=== PATIENT | male | born 1950 | race Caucasian/White ===

== ENCOUNTER 2023-01-21 17:21 | Inpatient (IN) | payer MEDICARE, BC ==
[~2023-01-21] VITALS: Ht 185.4 cm; Wt 96.6 kg
[2023-01-21] MEDS ORDERED: OLANZAPINE 5 MG TABLET ONE (18:29)
[2023-01-21] MEDS ORDERED: OLANZAPINE ZYDIS 5 MG TAB.RAPDIS PO ONE (18:30)
--- NOTE | 2023-01-21 18:46 | NUR ---
FROM [facility] F[facility] [phone] DEIRDRE (BILLING ANALYST) [phone] JIM (HOUSE SUP.) [phone]
[2023-01-21 18:52] LABS: ALANINE AMINOTRANSFERASE 26 U/L (12-78); ALKALINE PHOSPHATASE 133 U/L (46-116); ASPARTATE AMINOTRANSFERASE 24 U/L (15-37); BILIRUBIN,DIRECT 0.1 mg/dL (0.0-0.2); BILIRUBIN,TOTAL 0.3 mg/dL (0.2-1.0); CALCIUM, SERUM 9.1 mg/dL (8.5-10.1); CARBON DIOXIDE 27 mmol/L (21-32); CHLORIDE 105 mmol/L (98-107); CREATININE 0.8 mg/dL (0.6-1.3); GLUCOSE 135 mg/dL (74-106); POTASSIUM 3.7 mmol/L (3.5-5.1); SODIUM SERUM 140 mmol/L (136-145); TOTAL PROTEIN, SERUM 7.2 g/dL (6.4-8.2); UREA NITROGEN, BLOOD 26 mg/dL (7-18)
[2023-01-21 18:54] LABS: ACETAMINOPHEN 0 ug/ml (10-30); ALCOHOL, BLOOD < 3 mg/dL (0-0)
[2023-01-21 19:42] LABS: BILIRUBIN,URINE NEGATIVE (NEGATIVE); COLOR,URINE YELLOW (YELLOW); LEUKOCYTE ESTERASE ,URINE NEGATIVE (NEGATIVE); NITRITE, URINE NEGATIVE (NEGATIVE); PROTEIN,URINE NEGATIVE (NEGATIVE); UGLUCOSE NEGATIVE (NEGATIVE); UROBILINOGEN,URINE 0.2 EU/dL (0.2)
--- NOTE | 2023-01-21 19:51 | NUR ---
PT ARRIVE W/ [address]. WAS DETERMINED TAHT HE WAS A DANGER TO HIMSELF. PT RAMBLES AND HAS DELUSIONS OF GRANDIOSITY. PT IS NOT COMBATIVE. CONNECTED TO BEDSIDE MONITOR VITALS WNL.
[2023-01-21 19:55] LABS: BASOPHILS # (AUTO) 0.1 K/uL (0.0-0.2); BASOPHILS % (AUTO) 0.7 % (0.0-2.0); EOSINOPHILS % (AUTO) 0.8 % (0.0-6.0); HEMATOCRIT 40 % (39-51); HEMOGLOBIN 13.5 g/dL (13.5-17.5); LYMPHOCYTES % (AUTO) 34.1 % (20.0-44.0); MEAN CORPUSCULAR HGB CONC 34 g/dl (31.0-36.0); MEAN CORPUSCULAR VOLUME 87 fL (80-96); MONOCYTES % (AUTO) 10.7 % (2.0-12.0); NEUTROPHILS # (AUTO) 4.8 K/uL (1.8-8.9); NEUTROPHILS % (AUTO) 53.7 % (43.0-81.0); PLATELET COUNT (AUTO) 272 K/uL (150-450); RED BLOOD CELL COUNT(AUTO) 4.65 MIL/uL (4.5-6.0); WHITE BLOOD COUNT (AUTO) 8.9 K/uL (4.3-11.0)
[2023-01-21] MEDS ORDERED: LORAZEPAM INJ 2 MG/ML VIAL ONE (19:57)
[2023-01-21] MEDS ORDERED: LORAZEPAM INJ 2 MG/ML VIAL IM ONE (20:00)
[2023-01-21 20:43] LABS: BACTERIA,URINE RARE /HPF (None Seen); MUCUS,URINE Many /LPF (None Seen)
--- NOTE | 2023-01-21 21:06 | NUR ---
COVID SWAB COLLECTED AND SENT TO LAB
--- NOTE | 2023-01-22 01:43 | NUR ---
PT SLEEPING IN BED. RESP RATE EVEN AND NONLABORED. SAFETY MEASURES IN PLACE
[2023-01-22] MEDS ORDERED: LORAZEPAM INJ 2 MG/ML VIAL IV ONE (02:00)
[2023-01-22] MEDS ORDERED: LORAZEPAM INJ 2 MG/ML VIAL ONE (02:01)
--- NOTE | 2023-01-22 02:01 | NUR ---
PROVIDED PT WITH WATER; TOLERATING WELL.
--- NOTE | 2023-01-22 02:07 | NUR ---
PT YELLING AND NOT REDIRECTABLE. FOOD AND ADLS PROVIDED. ADMINISTRED ATIVAN 2MG IM ORDERED.
--- NOTE | 2023-01-22 02:21 | NUR ---
ADLS DONE; DIAPER CHANGED. RESPONSITIONED PT. SAFETY MEASURES IN PLACE.
[2023-01-22] MEDS ORDERED: HALOPERIDOL LACTATE INJ 5 MG/ML VIAL IV ONE (03:00)
[2023-01-22] MEDS ORDERED: diphenhydrAMINE HCL 50 MG/ML VIAL IV ONE (03:00)
[2023-01-22] MEDS ORDERED: diphenhydrAMINE HCL 50 MG/ML VIAL ONE (03:02)
[2023-01-22] MEDS ORDERED: HALOPERIDOL LACTATE INJ 5 MG/ML VIAL ONE (03:02)
[2023-01-22] MEDS ORDERED: HALOPERIDOL LACTATE INJ 5 MG/ML VIAL IM ONE (03:30)
--- NOTE | 2023-01-22 06:27 | NUR ---
PER IS SUPPORT ANALYST STAFF, TO GIVE REPORT AFTER CHANGE OF SHIFT.
--- NOTE | 2023-01-22 07:31 | NUR ---
REPORT GIVEN TO RINA RN ROOM 213 FOR PINKY.
--- NOTE | 2023-01-22 07:31 | NUR ---
REPORT GIVEN TRACY NIELSON
--- NOTE | 2023-01-22 07:47 | NUR ---
MOVED TO INPATIENT ROOM SAFELY
--- NOTE | 2023-01-22 08:00 | NUR ---
RN-ADMISSION NOTES AROUND 0[facility] ER STAFF BROUGHT IN A 72 Y.O MALE PATIENT IN THE UNIT VIA HOSPITAL BED. PATIENT ON 5150 HOLD FOR GD ADULT. PATIENT IS UNDER THE CARE OF DR. SAUCEDA ( PSYCHIATRIST) UPON FACE TO FACE ASSESSMENT PATIENT IS ALERT ORIENTED TO NAME ONLY WITH GARBLE SPEECH,GUARDED FLAT AFFECT ,DELUSIONAL STATING THAT HE IS THE [place] PRESIDENT. PATIENT IS POOR HISTORIAN UNABLE TO FOCUS ON ANY CONVERSATION. PATIENT WITH UNSTEADY GAIT AMBULATES WITH WALKER WITH ONE STAFF ASSIST. INSTRUCTED TO CALL FOR HELP GETTING UP THE BED OR NEED ASSISTANCE. CONTRABAND AND SKIN ASSESSMENT DONE. PATIENT WAS ORIENTED IN HIS ROOM AND UNIT POLICIES. NO FAMILY TO NOTIFY ON THE ADMISSION. COMMERCIAL LOAN ADMINISTRATOR JERICA ( BOTTLE BLOWER) MADE AWARE OF THE ADMISSION. PT EVAL AND WOUND CONSULT ORDERED.
--- NOTE | 2023-01-22 09:17 | NUR ---
JAX Initial Discharge Note: Per records it states that pt was residing at [address] [place] [address]. JAX will contact pt's brother Jonathon ([phone]) to gather collateral and discuss treatment/discharge plan. JAX will work with the family, MD, and pt to help coordinate appropriate discharge.
--- NOTE | 2023-01-22 09:18 | NUR ---
JAX Clinical Note: Pt placed on a 5150 hold for GD. Pt brought to the hospital due to being cited out of his home because of a misdemeanor and at the [address] pt was delusional stating that he is the U.[place] President. Per records it states that pt was residing at [address] [place] [address]. JAX will contact pt's brother Jonathon ([phone]) to gather collateral and discuss treatment/discharge plan.
--- NOTE | 2023-01-22 09:19 | NUR ---
JAX Family Contact: SW contacted pt's brother Jonathon ([phone]) who stated that he lives in [place]. He stated that last two years his symptoms and manic episodes have been worse. He stated that he has been in and out of mental health units. He stated that he has been kicked out of his apartment two weeks ago because he has been threatening residents. He stated that he is unable to care for him and that he is "toxic". He stated he has another brother in [place] (stepbrother). He stated pt has no where to go. SW recommended nursing facility and brother was agreeable of this. He stated that he is the DPOA but unable to find the documents. He stated if finds and locates the documents he will send it over.
[2023-01-22] MEDS ORDERED: MAGNESIUM HYDROXIDE 30 ML UDC PO PRN (10:00)
[2023-01-22] MEDS ORDERED: MAG HYDROX/AL HYDROX/SIMETH 30 ML UDC PO PRN (10:00)
[2023-01-22] MEDS ORDERED: BLOOD SUGAR DIAGNOSTIC 1 EACH STRIP IN ONE (10:00)
[2023-01-22] MEDS ORDERED: LORAZEPAM 1 MG TABLET PO PRN (11:00)
[2023-01-22] MEDS: LamoTRIgine 25 MG TABLET PO SCH ×2 (11:17→21:05)
--- NOTE | 2023-01-22 11:28 | NUR ---
RN-NOTES NOTED PATIENT YELLING AND SCREAMING/CONFUSED REDIRECTED AND REORIENTED. ATIVAN 1MG P.O GIVEN PRN ORDER. WILL CONT. MONITORING FOR SAFETY AND BEHAVIOR.
--- NOTE | 2023-01-22 12:30 | NUR ---
RN-NOTES PATIENT IN DAY ROOM SITTING IN THE CHAIR AWAKE ,CALM,NO ACUTE DISTRESS NOTED.
[2023-01-22 16:19] VITALS: BP 140/80
[2023-01-22] MEDS: risperiDONE 0.25 MG TABLET PO SCH (16:40)
[2023-01-22] MEDS ORDERED: LAMO100T17 PO (17:29)
[2023-01-22] MEDS ORDERED: IBUP-1955 PO (17:29)
[2023-01-22] MEDS ORDERED: TAMS-12 PO (17:29)
[2023-01-22] MEDS ORDERED: HALO5SYR IM (17:29)
[2023-01-22] MEDS ORDERED: AMLO-212 PO (17:29)
[2023-01-22] MEDS ORDERED: QUET200T PO (17:29)
[2023-01-22] MEDS ORDERED: LORA-259 PO (17:29)
[2023-01-22] MEDS ORDERED: ATOR10TA PO (17:29)
[2023-01-22] MEDS ORDERED: GABA-532 PO (17:29)
[2023-01-22] MEDS ORDERED: OMEP20CA15 PO (17:29)
[2023-01-22] MEDS ORDERED: TRAZ-182 PO (17:29)
--- NOTE | 2023-01-22 17:55 | NUR ---
RN-NOTES DR. TURNER WAS NOTIFIED REGARDING PATIENT'S ADMISSION ,PER DR. TURNER IS OK FOR THE [facility] HOSPITALIST TO SEE THE PATIENT BECAUSE HE IS NOT FAMILIAR WITH THE PATIENT. JUNIOR COPYWRITER FRANCISCO PIZANO ALSO MADE AWARE TO RECONCILE PATIENT'S MEDICATIONS.
--- NOTE | 2023-01-22 19:35 | NUR ---
RN NOTES RECEIVED PATIENT AMBULATING IN HALLWAY WITH WALKER. PT A/O X1-2, ABLE TO MAKE SIMPLE NEEDS KNOWN. PT HAS GRANDIOSE IDEATION, AND HALLUCINATIONS. COOPERATIVE WITH STAFF, AND PRESENT IN UNIT. WILL CONTINUE TO MONITOR BEHAVIOR AND MANAGE ACCORDINGLY.
[2023-01-22 20:16] VITALS: BP 123/76
[2023-01-22] MEDS: ATORVASTATIN 10 MG TABLET PO SCH (21:06)
[2023-01-22] MEDS: AMLODIPINE BESYLATE 5 MG TABLET PO SCH (21:06)
[2023-01-22] MEDS: TAMSULOSIN 0.4 MG CAP.SR.24H PO SCH (21:07)
[2023-01-22] MEDS: ZOLPIDEM TARTRATE 5 MG TABLET PO PRN (23:10)
--- NOTE | 2023-01-22 23:10 | NUR ---
RN NOTE PT REPORTS BEING UNABLE TO SLEEP. EDGARIEN ADMINISTERED TO PT.
[2023-01-23] MEDS: ACETAMINOPHEN 325 MG TABLET PO PRN ×2 (03:41→19:59)
--- NOTE | 2023-01-23 03:41 | NUR ---
RN NOTE PT C/O PAIN TO BILATERAL SHOULDERS. TYLENOL ADMINISTERED TO PT.
[2023-01-23 07:05] LABS: ALANINE AMINOTRANSFERASE 30 U/L (12-78); ALBUMIN 3.9 g/dL (3.4-5.0); ALKALINE PHOSPHATASE 132 U/L (46-116); ASPARTATE AMINOTRANSFERASE 27 U/L (15-37); BILIRUBIN,TOTAL 0.6 mg/dL (0.2-1.0); CALCIUM, SERUM 9.4 mg/dL (8.5-10.1); CARBON DIOXIDE 28 mmol/L (21-32); CHLORIDE 103 mmol/L (98-107); CREATININE 0.8 mg/dL (0.6-1.3); GLUCOSE 109 mg/dL (74-106); SODIUM SERUM 138 mmol/L (136-145); TOTAL PROTEIN, SERUM 7.1 g/dL (6.4-8.2); UREA NITROGEN, BLOOD 16 mg/dL (7-18)
--- NOTE | 2023-01-23 07:05 | NUR ---
RN NOTE LEFT PATIENT AWAKE, IN BED. PT A/O X2, ABLE TO MAKE NEEDS KNOWN. PT HAS GRANDIOSE IDEATION, AND HALLUCINATIONS. COOPERATIVE WITH STAFF, AND PRESENT IN UNIT. PT ONLY SLEPT A FEW HOURS LAST NIGHT. NO RESPIRATORY DISTRESS NOTED. NO C/O PAIN AT THIS TIME. WILL ENDORSE TO AM SHIFT NURSE FOR PINKY.
--- NOTE | 2023-01-23 07:16 | NUR ---
WOUND CARE CONSULT: PT SLEEPING AT THIS TIME. REVIEWED CHART, NURSING DOCUMENTATION AND PHOTOS WHICH INDICATE RT LATERAL LOWER LEG WOUND, PRESENT ON ADMISSION. RECOMMEND DPM CONSULT. DR PUENTE TO BE CALLED THIS AM FOR CONSULT. MD IN AGREEMENT WITH PLAN OF CARE.
[2023-01-23 08:00] VITALS: BP 137/78
[2023-01-23 08:14] LABS: CHOLESTEROL 149 mg/dL (<200); HDL CHOLESTEROL 52 mg/dL (40-60); LDL 88 mg/dL (0-99); TRIGLYCERIDES 60 mg/dL (30-150)
[2023-01-23] MEDS: AMLODIPINE BESYLATE 5 MG TABLET PO SCH ×2 (08:42→21:24)
[2023-01-23] MEDS: LamoTRIgine 25 MG TABLET PO SCH ×2 (08:42→21:23)
[2023-01-23] MEDS: risperiDONE 0.25 MG TABLET PO SCH (08:42)
[2023-01-23] MEDS ORDERED: diphenhydrAMINE HCL 50 MG/ML VIAL IM ONE (10:00)
[2023-01-23] MEDS ORDERED: HALOPERIDOL LACTATE INJ 5 MG/ML VIAL IM ONE (10:00)
--- NOTE | 2023-01-23 10:50 | NUR ---
NURSE NOTE: PT YELLING, BEING BELIGERENT. THREATENING. DR SAUCEDA NOTED AND ORDERED. HALDOL 5MG AND BENADRYL 25MG IM. HALDOL AND BENADRYL ADMINISTERED ORDERED. PT JOSE E WELL. WILL CONT TO MONITOR.
--- NOTE | 2023-01-23 11:50 | NUR ---
NURSE NOTE: PT SL CALMER, BUT CONT HAVING OUTBURSTS OF YELLING AND SCREAMING OBSCENITIES. WILL CONT TO MONITOR.
[2023-01-23] MEDS ORDERED: OLANZAPINE 10 MG VIAL IM ONE (12:00)
--- NOTE | 2023-01-23 12:15 | NUR ---
NURSE NOTE: PT CONT ACTING BELLIGERENT. YELLING, THREATENING, SAYING OBSCENITIES. DR SAUCEDA NOTIFIED AND ORDERED ZYPREXA 10MG IM. ZYPREXA ADMINISTERED ORDERED. PT JOSE E WELL. WILL CONT TO MONITOR.
--- NOTE | 2023-01-23 13:00 | NUR ---
NURSE NOTE: PT SLEEPING AT THIS TIME. ZYPREXA EFFECTIVE AT THIS TIME. WILL CONT TO MONITOR.
[2023-01-23 16:00] VITALS: BP 127/75
[2023-01-23] MEDS: risperiDONE 1 MG TABLET PO SCH (17:00)
[2023-01-23] MEDS: ENSURE ENLIVE CHOC 237 ML CAN PO SCH (17:00)
--- NOTE | 2023-01-23 19:30 | NUR ---
GPS RN OPENING NOTE PT AWAKE IN BED. A/O X2. GUARDED, DELUSIONAL, THINKS THAT HIS BROTHER IS THE PRESIDENT OF THE [place], ANXIOUS, AGITATED AT TIMES, EASILY ANGERED. NEEDS FREQUENT REDIRECTIONS AND REORIENTATION. SAFETY PRECAUTIONS IN PLACE.
--- NOTE | 2023-01-23 20:00 | NUR ---
RN NOTE PT REQUESTED TYLENOL FOR PAIN. ADMINISTERED TYLENOL 650 MG FOR MILD PAIN ORDERED.
[2023-01-23 20:14] VITALS: BP 141/79
[2023-01-23] MEDS: ATORVASTATIN 10 MG TABLET PO SCH (21:23)
[2023-01-23] MEDS: TAMSULOSIN 0.4 MG CAP.SR.24H PO SCH (21:23)
[2023-01-24] MEDS: ACETAMINOPHEN 325 MG TABLET PO PRN ×3 (03:46→23:59)
--- NOTE | 2023-01-24 03:47 | NUR ---
RN NOTE PT REQUESTED TYLENOL FOR R ARM PAIN 01/25. ADMINISTERED TYLENOL 650 MG FOR MILD PAIN ORDERED. ALL NEEDS MET AT THIS TIME.
--- NOTE | 2023-01-24 06:48 | NUR ---
GPS RN CLOSING NOTE PT RESTING IN BED, VERBALLY RESPONSIVE. A/O X2. GUARDED, DELUSIONAL, THINKS THAT HIS BROTHER IS THE PRESIDENT OF THE [place], ANXIOUS, AGITATED AT TIMES, EASILY ANGERED. NEEDS FREQUENT REDIRECTIONS AND REORIENTATION. SLEPT 7 HOURS THI SHIFT. ADMINISTERED TYLENOL 2 TIMES THIS SHIFT. SAFETY PRECAUTIONS IN PLACE AND WILL ENDORSE TO ONCOMING NURSE FOR PINKY.
[2023-01-24] MEDS: ENSURE ENLIVE CHOC 237 ML CAN PO SCH ×2 (07:59→16:15)
[2023-01-24 08:00] VITALS: BP 126/73
[2023-01-24] MEDS: risperiDONE 1 MG TABLET PO SCH ×2 (08:05→16:15)
[2023-01-24] MEDS: LamoTRIgine 25 MG TABLET PO SCH ×2 (08:06→20:20)
[2023-01-24] MEDS: AMLODIPINE BESYLATE 5 MG TABLET PO SCH ×2 (08:06→20:21)
[2023-01-24] MEDS ORDERED: LORAZEPAM 1 MG TABLET PO PRN (08:30)
[2023-01-24] MEDS: LORAZEPAM 1 MG TABLET PO PRN (09:56)
--- NOTE | 2023-01-24 09:57 | NUR ---
RN- NOTES ATIVAN 1MG ADMINISTERED DUE TO PATIENT BEING IRRITABLE, CURSING AND YELLING AT STAFF, AND AGGRESSIVE.
[2023-01-24 16:00] VITALS: BP 115/63
--- NOTE | 2023-01-24 18:02 | NUR ---
RN NOTE PT REQUESTED TYLENOL FOR PAIN. ADMINISTERED TYLENOL 650 MG FOR MILD PAIN ORDERED.
--- NOTE | 2023-01-24 18:32 | NUR ---
GPS RN CLOSING NOTE PATIENT SITTING IN HIS BED, A/OX2, BREATHING EVEN AND NON LABORED WITH NO S/S OF DISTRESS. PT IS ANXIOUS, HYPERVERBAL, NEEDY, PACING THE HALLWAY, AND HAVING DELUSIONS OF GRANDEUR. DENIES SI/HI AT THIS TIME. PT IS MED COMPLIANT. ADMINISTERED ALL DUE MEDS AND PRN ATIVAN AND TYLENOL PER PATIENT REQUEST. WOUND CARE PER MD ORDER, KEPT PATIENT C/D/I. NEEDS FREQUENT REDIRECTIONS. PT DENIES SI/HI AT THIS TIME. SAFETY MEASURES IN PLACE. WILL ENDORSE TO ONCOMING NURSE FOR PINKY.
[2023-01-24 20:00] VITALS: BP 129/75
[2023-01-24] MEDS: ATORVASTATIN 10 MG TABLET PO SCH (21:10)
[2023-01-24] MEDS: TAMSULOSIN 0.4 MG CAP.SR.24H PO SCH (21:10)
--- NOTE | 2023-01-25 | NUR ---
RN NOTE PATIENT C/O RIGHT ARM PAIN WITH 3/10 PAIN LEVEL SINCE 2229 BUT NO PAIN MEDS DUE UNTIL 12 AM. EXPLAINED THIS TO PATIENT. PT VERBALIZED UNDERSTANDING AND WILLINGNESS TO WAIT. TYLENOL EVENTUALLY GIVEN AT 0000 PRESCRIBED.
[2023-01-25] MEDS: ACETAMINOPHEN 325 MG TABLET PO PRN ×3 (05:53→21:08)
--- NOTE | 2023-01-25 05:54 | NUR ---
RN NOTE PATIENT REQUESTED PAIN MEDICATION FOR R ARM MILD PAIN. ADMINISTERED TYLENOL 650 MG INDICATED.
--- NOTE | 2023-01-25 06:29 | NUR ---
RN NOTE PT STARTING TO GET AGITATED, STATING HE WANTS HIS PHONE AND HIS MONEY BACK FROM HIS BROTHER ANDERSON. OFFERED ATIVAN PRN MED FOR ANXIETY BUT PT REFUSES, SAYING "STOP OFFERING ME DRUGS WHEN I AM PISSED OFF ABOUT MY PHONE". ALSO ASKING FOR BREAKFAST AT THIS TIME. MENTIONED THAT BREAKFAST COMES AT 0730. PROVIDED JUICE FOR NOW AND IT HELPED CALM HIM DOWN.
--- NOTE | 2023-01-25 06:32 | NUR ---
GPS RN CLOSING NOTE PATIENT SITTING IN HIS BED, A/OX2, BREATHING EVEN AND NON LABORED WITH NO S/S OF DISTRESS. PT IS ANXIOUS, HYPERVERBAL, NEEDY, AND HAVING DELUSIONS OF GRANDEUR. COMPLAINS WHY HE IS IN 5150 HOLD WHEN HE ONLY CLAIMED HE WILL BE PRESIDENT WHEN BIDEN STEPS DOWN, NOT THAT HE IS PRESIDENT NOW. ALSO MENTIONS ABOUT HIS BROTHER ANDERSON, BLUEPRINT PROCESSOR DENNIS, AND THAT HE WILL BE TO THE [facility]. PT IS MED COMPLIANT. ADMINISTERED ALL DUE MEDS AND PRN TYLENOL PER PATIENT REQUEST. REFUSES ATIVAN. WOUND CARE INTACT BUT REINFORCED. NEEDS FREQUENT REDIRECTIONS. PT DENIES SI/HI AT THIS TIME. SAFETY MEASURES MAINTAINED. WILL ENDORSE PINKY TO ONCOMING NURSE.
[2023-01-25 08:00] VITALS: BP 104/74
[2023-01-25] MEDS: ENSURE ENLIVE CHOC 237 ML CAN PO SCH ×2 (08:18→16:26)
[2023-01-25] MEDS: LamoTRIgine 25 MG TABLET PO SCH ×2 (08:18→20:47)
[2023-01-25] MEDS: risperiDONE 1 MG TABLET PO SCH ×3 (08:18→16:26)
[2023-01-25] MEDS: AMLODIPINE BESYLATE 5 MG TABLET PO SCH (08:23)
--- NOTE | 2023-01-25 10:05 | NUR ---
GPS/RN RISPERDAL GIVEN ALREADY. NEW DOSE TO BE STARTED AT 1700
--- NOTE | 2023-01-25 10:20 | NUR ---
Court Notification: JAX contacted pt's brother Otilio ([phone]) and left a voicemail of [phone] hearing.
--- NOTE | 2023-01-25 10:20 | NUR ---
Court Hearing: Patient's court hearing for 0030 was today and it was upheld for GD.
[2023-01-25 16:00] VITALS: BP 157/87
[2023-01-25 20:00] VITALS: BP 120/64
[2023-01-25 20:19] VITALS: BP 120/64
[2023-01-25] MEDS: TAMSULOSIN 0.4 MG CAP.SR.24H PO SCH (21:09)
[2023-01-25] MEDS: ATORVASTATIN 10 MG TABLET PO SCH (21:09)
--- NOTE | 2023-01-25 21:51 | NUR ---
RECEIVED PATIENT IN ACTIVITY ROOM, DELUSIONAL, INTRODUCED HIMSELF ECONOMIC ANALYSIS DIRECTOR. CALM, COOPERATIVE, NEEDY, TOOK ALL PM MEDS, EATING WELL, GIVEN SNACKS AND DRINKING WATER. KEPT SAFE, WILL CONTINUE TO MONITOR FOR SAFETY.
--- NOTE | 2023-01-26 01:07 | NUR ---
GPS RN NOTE, PATIENT HAS A COMPLAINT OF CHRONIC RIGHT SHOULDER PAIN AT 7 OUT 10 ON THE PAIN SCALE AND IS REQUESTING MEDICATION STRONGER THAN TYLENOL. PAGED [facility] AND INFORMED DR KNIGHT OF MY FINDINGS. DR KNIGHT ORDERED MOTRIN 600MG PO Q6HR PRN. ALL ORDERS NOTED AND CARRIED OUT. WILL CONTINUE TO MONITOR THIS PATIENT WITH THE HELP OF STAFF.
[2023-01-26] MEDS: IBUPROFEN 600 MG TABLET PO PRN ×3 (01:13→21:49)
[2023-01-26] MEDS: ACETAMINOPHEN 325 MG TABLET PO PRN (05:59)
--- NOTE | 2023-01-26 06:03 | NUR ---
ALERT/ORIENTED X2, ROOM AIR, RIGHT SHOULDER PAIN, GIVEN TYLENOL AND NEW ORDER MOTRIN 600 MG. CALM, COOPERATIVE, RESTLESS AT TIMES, HYPERVERBAL, TOOK ALL MEDICATIONS, AMBULATORY, CONTINENT. NO BEHAVIORAL DISTURBANCE DURING SHIFT. KEPT SAFE.
[2023-01-26 08:00] VITALS: BP 125/70
[2023-01-26] MEDS: risperiDONE 1 MG TABLET PO SCH ×2 (08:14→16:15)
[2023-01-26] MEDS: AMLODIPINE BESYLATE 5 MG TABLET PO SCH (08:14)
[2023-01-26] MEDS: LamoTRIgine 25 MG TABLET PO SCH ×2 (08:14→21:49)
[2023-01-26] MEDS: ENSURE ENLIVE CHOC 237 ML CAN PO SCH ×2 (08:14→16:14)
[2023-01-26 16:00] VITALS: BP 99/56
[2023-01-26 20:00] VITALS: BP 99/64
[2023-01-26] MEDS: ZOLPIDEM TARTRATE 5 MG TABLET PO PRN ×4 (21:48→23:30)
[2023-01-26] MEDS: ATORVASTATIN 10 MG TABLET PO SCH (21:48)
[2023-01-26] MEDS: TAMSULOSIN 0.4 MG CAP.SR.24H PO SCH (21:49)
[2023-01-27] MEDS: ACETAMINOPHEN 325 MG TABLET PO PRN (01:58)
--- NOTE | 2023-01-27 03:40 | NUR ---
Closing notes: alert and orientated X2 ambulates the hallway beginning of the shift requested a sleeping pill and when taken to the room refused say " I'm so tired I don't need it" Motrin /Tylenol given for right shoulder pain and effective speech garbled stated to me "I'm the President, did you know that?"
[2023-01-27 08:00] VITALS: BP 124/71
[2023-01-27] MEDS: ENSURE ENLIVE CHOC 237 ML CAN PO SCH ×2 (08:00→17:40)
[2023-01-27] MEDS: risperiDONE 1 MG TABLET PO SCH ×2 (09:02→16:08)
[2023-01-27] MEDS: AMLODIPINE BESYLATE 5 MG TABLET PO SCH (09:02)
[2023-01-27] MEDS: LamoTRIgine 25 MG TABLET PO SCH ×2 (09:02→21:46)
[2023-01-27] MEDS: IBUPROFEN 600 MG TABLET PO PRN ×2 (12:28→20:51)
[2023-01-27] MEDS: LORAZEPAM 1 MG TABLET PO PRN (14:36)
--- NOTE | 2023-01-27 14:36 | NUR ---
NURSE NOTE: PT ANXIOUS AT THIS TIME. ATIVAN PO ADMINISTERED ORDERED. PT JOSE E WELL. WILL CONT TO MONITOR.
--- NOTE | 2023-01-27 15:36 | NUR ---
NURSE NOTE: PT CALM AT THIS TIME. ATIVAN EFFECTIVE AT THIS TIME. WILL CONT TO MONITOR.
[2023-01-27 16:00] VITALS: BP 119/70
[2023-01-27 20:19] VITALS: BP 111/64
--- NOTE | 2023-01-27 20:51 | NUR ---
RN NOTE PATIENT C/O OF 6/10 PAIN AND REQUESTED MOTRIN. MEDICATION GIVEN ORDERED
[2023-01-27] MEDS: TAMSULOSIN 0.4 MG CAP.SR.24H PO SCH (21:46)
[2023-01-27] MEDS: ATORVASTATIN 10 MG TABLET PO SCH (21:46)
--- NOTE | 2023-01-27 22:30 | NUR ---
RN NOTE WOUND CARE ON RIGHT LOWER LEG DONE. WOUND PHOTO TAKEN AND PLACED IN CHART
[2023-01-28] MEDS: ACETAMINOPHEN 325 MG TABLET PO PRN ×2 (01:14→22:16)
--- NOTE | 2023-01-28 01:17 | NUR ---
RN NOTE PATIENT C/O RIGHT ARM PAIN. TYLENOL 650 MG PO GIVEN ORDERED
[2023-01-28] MEDS: IBUPROFEN 600 MG TABLET PO PRN ×2 (03:35→16:56)
--- NOTE | 2023-01-28 03:40 | NUR ---
RN NOTE PATIENT C/O OF 6/10 PAIN AND REQUESTED MOTRIN. MEDICATION GIVEN ORDERED
--- NOTE | 2023-01-28 06:31 | NUR ---
RN CLOSING NOTE PATIENT SLEEPING IN BED AT THIS TIME, PT ALERT/ORIENTED X 2, PT ABLE TO MAKE NEEDS KNOWN. PT CALM AND COOPERATIVE THIS SHIFT, NO BEHAVIORAL ISSUES. PATIENT STILL STATING HE'S GOING TO BE PRESIDENT. PATIENT STATING IT'S HIS BIRTHDAY SO HE'S LEAVING TODAY TO CELEBRATE WITH HIS BROTHER, REORIENTED PATIENT TO SITUATION. PATIENT MED COMPLIANT. PATIENT REQUESTED MOTRIN AND TYLENOL THIS SHIFT FOR PAIN. WOUND CARE AND WOUND PHOTO TAKEN. PATIENT ABLE TO AMBULATE WITH FWW. PATIENT SLEPT WELL, NO SIGNIFICANT CHANGES THIS SHIFT. SAFETY MEASURES MAINTAINED. WILL ENDORSE TO DAYSHIFT RN FOR CONTINUITY OF CARE
[2023-01-28 08:00] VITALS: BP 133/81
[2023-01-28] MEDS: LamoTRIgine 25 MG TABLET PO SCH ×2 (08:29→21:04)
[2023-01-28] MEDS: risperiDONE 1 MG TABLET PO SCH ×2 (08:29→16:56)
[2023-01-28] MEDS: AMLODIPINE BESYLATE 5 MG TABLET PO SCH (08:30)
[2023-01-28] MEDS: ENSURE ENLIVE CHOC 237 ML CAN PO SCH ×2 (08:30→17:23)
[2023-01-28 16:00] VITALS: BP 110/59
--- NOTE | 2023-01-28 16:56 | NUR ---
NURSE NOTE: PT C/O PAIN TO R KNEE. DID NOT RATE. REQUESTED MOTRIN. MOTRIN PO ADMIN ORDERED. PT JOSE E WELL, WILL CONT TO MONITOR.
--- NOTE | 2023-01-28 17:55 | NUR ---
NURSE NOTE: PT SAYS HE FEELS MUCH BETTER. MOTRIN EFFECTIVE AT THIS TIME. WILL CONT TO MONITOR.
[2023-01-28 20:15] VITALS: BP 108/60
[2023-01-28] MEDS: TAMSULOSIN 0.4 MG CAP.SR.24H PO SCH (21:03)
[2023-01-28] MEDS: ATORVASTATIN 10 MG TABLET PO SCH (21:04)
--- NOTE | 2023-01-29 07:23 | NUR ---
GPS RN OPENING NOTE RECEIVED LYING AWAKE IN BED. A/O X2-3, ANXIOUS, ON ROOM AIR BREATHING WITHOUT DIFFICULTY, NOT IN ANY ACUTE DISTRESS AT THIS TIME. DENIES PAIN NOR DISCOMFORT, SAFETY PRECAUTIONS IN PLACE. WILL CONTINUE TO MONITOR FOR SAFETY AND ANY BEHAVIORAL CHANGES.
[2023-01-29] MEDS: ENSURE ENLIVE CHOC 237 ML CAN PO SCH ×2 (07:49→17:19)
[2023-01-29 08:00] VITALS: BP 139/71
[2023-01-29] MEDS: risperiDONE 1 MG TABLET PO SCH ×2 (08:19→17:19)
[2023-01-29] MEDS: LamoTRIgine 25 MG TABLET PO SCH ×2 (08:19→21:16)
[2023-01-29] MEDS: AMLODIPINE BESYLATE 5 MG TABLET PO SCH (08:20)
[2023-01-29] MEDS: IBUPROFEN 600 MG TABLET PO PRN ×2 (08:33→20:08)
--- NOTE | 2023-01-29 08:33 | NUR ---
RN NOTES - PATIENT COMPLAINING OF 6/10 R SHOULDER PAIN, REQUESTED FOR MOTRIN, ADMINISTERED 600 MG PER PRN ORDER. WILL CONTINUE TO MONITOR
[2023-01-29 16:00] VITALS: BP 159/60
--- NOTE | 2023-01-29 19:19 | NUR ---
GPS RN CLOSING NOTE PATIENT SITTING IN HIS BED, A/OX2, BREATHING EVEN AND NON LABORED WITH NO S/S OF DISTRESS. PT IS ANXIOUS, HYPERVERBAL, NEEDY, AND HAVING DELUSIONS OF GRANDEUR, UPSET ABOUT HIS BED NOT BEING TUCKED IN, MED COMPLIANT. ADMINISTERED ALL DUE MEDS AND PRN IBUPROFEN PER PATIENT REQUEST. WOUND CARE GIVEN AND DRESSING REINFORCED. NEEDS FREQUENT REDIRECTIONS. PT DENIES SI/HI AT THIS TIME. SAFETY MEASURES MAINTAINED. ENDORSED TO SAMPLES AND REPAIRS PREPARER NURSE.
[2023-01-29 20:20] VITALS: BP 122/67
[2023-01-29] MEDS: ATORVASTATIN 10 MG TABLET PO SCH (21:16)
[2023-01-29] MEDS: TAMSULOSIN 0.4 MG CAP.SR.24H PO SCH (21:16)
[2023-01-30 08:00] VITALS: BP 109/57
[2023-01-30] MEDS: ENSURE ENLIVE CHOC 237 ML CAN PO SCH ×2 (08:56→17:35)
[2023-01-30] MEDS: risperiDONE 1 MG TABLET PO SCH ×2 (08:57→17:35)
[2023-01-30] MEDS: AMLODIPINE BESYLATE 5 MG TABLET PO SCH (08:57)
[2023-01-30] MEDS: LamoTRIgine 25 MG TABLET PO SCH ×2 (08:57→21:15)
--- NOTE | 2023-01-30 09:00 | NUR ---
NURSE NOTE: PT C/O PAIN AT THIS TIME. REQUESTED MOTRIN. MOTRIN PO ADMINISTERED ORDERED. WILL CONT TO MONITOR.
[2023-01-30] MEDS: IBUPROFEN 600 MG TABLET PO PRN ×2 (09:09→22:38)
--- NOTE | 2023-01-30 09:36 | NUR ---
SNF Referral: JAX sent clinicals to [facility] to Allen thompson ([phone]) for placement. SW sent H & P, progress notes, and medication list.
--- NOTE | 2023-01-30 10:00 | NUR ---
NURSE NOTE: MOTRIN EFFECTIVE AT THIS TIME. PT STATED THAT HE FEELS BETTER NOW, WILL CONT TO MONITOR.
[2023-01-30] MEDS: ACETAMINOPHEN 325 MG TABLET PO PRN (14:20)
--- NOTE | 2023-01-30 14:20 | NUR ---
NURSE NOTE: PT C/O PAIN AT THIS TIME. REQUESTED TYL. TYL PO ADMINISTERED ORDERED. WILL CONT TO MONITOR.
--- NOTE | 2023-01-30 15:20 | NUR ---
NURSE NOTE: PT SLEEPING AT THIS TIME. NO S/S OF PAIN. WILL CONT TO MONITOR.
[2023-01-30 16:00] VITALS: BP 106/62
[2023-01-30 20:27] VITALS: BP 114/56
[2023-01-30] MEDS: TAMSULOSIN 0.4 MG CAP.SR.24H PO SCH (21:15)
[2023-01-30] MEDS: ATORVASTATIN 10 MG TABLET PO SCH (21:15)
--- NOTE | 2023-01-30 22:30 | NUR ---
RN NOTES PATIENT COMPLAIN OF RIGHT LEG PAIN AND ASK FOR MOTRIN MOTRIN GIVEN AND WELL TOLERATED BY THE PATIENT. WILL CONTINUE TO MONITOR
[2023-01-31] MEDS: IBUPROFEN 600 MG TABLET PO PRN ×2 (03:58→16:20)
[2023-01-31 08:00] VITALS: BP 121/67
[2023-01-31] MEDS: ENSURE ENLIVE CHOC 237 ML CAN PO SCH ×2 (08:10→16:46)
[2023-01-31] MEDS: risperiDONE 1 MG TABLET PO SCH ×2 (08:10→16:03)
[2023-01-31] MEDS: AMLODIPINE BESYLATE 5 MG TABLET PO SCH (08:11)
[2023-01-31] MEDS: LamoTRIgine 25 MG TABLET PO SCH ×2 (08:11→20:30)
--- NOTE | 2023-01-31 09:25 | NUR ---
SNF Contact: SW received a call from [facility] to Allen thompson ([phone]) who stated they cannot accept pt due to 0 SNF days.
--- NOTE | 2023-01-31 09:25 | NUR ---
SW Referral: SW sent clinicals to Rosetta thompson ([phone]) and Shorty thompson ([phone]) for placement. They both stated that pt has 0 SNF days and they are unable to place pt at a SNF. Shorty Thompson ([phone]) stated pt was at [facility] and was discharged to an Assisted Living but he is no longer welcomed back. Shorty thompson stated that he is currently trying to find pt an Assisted Living in [place] location and will follow up with this account underwriter.
--- NOTE | 2023-01-31 13:50 | NUR ---
Facility Contact: JAX received a call from [facility] admin [phone], who is accepting pt. She stated that pt is welcomed on 02/02, Saturday. JAX faxed pt's medication list and facesheet to ([phone]).
--- NOTE | 2023-01-31 13:52 | NUR ---
[facility]: JAX contacted [facility] [phone] and spoke with Chelo who scheduled the transportation at 12PM. Quote $170.00 approved by Irene Arias.
--- NOTE | 2023-01-31 15:14 | NUR ---
Prescriptions faxed to [facility] with the tel# of [phone] and fax# of [phone]. Spoke to Palma and confirmed that the received the prescriptions.
[2023-01-31 16:00] VITALS: BP 116/58
--- NOTE | 2023-01-31 16:22 | NUR ---
RN-NOTES PATIENT C/O RIGHT SHOULDER AND RIGHT LEG PAIN 04/27 AND REQUESTING MOTRIN. MOTRIN 6OOMG P.O GIVEN PRN ORDER.
--- NOTE | 2023-01-31 17:44 | NUR ---
RN-NOTES PATIENT IS VISIBLE IN THE UNIT AWAKE,A/O X3 ATTENDED GROUPS ,WATCHING TV.NO ACUTE DISTRESS NOTED.COMPLIANT WITH MEDICATIONS. NOTED PATIENT WITH NEEDY AND DEMANDING BEHAVIOR.ALL NEEDS ATTENDED AND ANTICIPATED.AMBULATORY STEADY GAIT. NOTED PATIENT WITH SWOLLEN RIGHT LOWER LEG, DR. KNIGHT MADE AWARE WITH NNO. ONGOING WOUND TREATMENT ON RIGHT LEG OPEN WOUND. WILL CONT. MONITORING FOR SAFETY AND BEHAVIOR. WILL ENDORSE TO INCOMING NURSE FOR THE CONTINUITY OF CARE.
--- NOTE | 2023-01-31 19:44 | NUR ---
RN NOTES: PATIENT WALKING AROUND THE UNIT. A/O X2. NO S/SX OF ACUTE DISTRESS NOTED. PT IS ANXIOUS, DELUSIONAL, HYPERVERBAL, PARANOID , GUARDED, EASILY AGITATED/IRRITABLE, NEEDS FREQUENT REDIRECTIONS AND REORIENTATION. DENIES SI/HI/AV AT THIS TIME. SAFETY PRECAUTIONS MAINTAINED. WILL CONTINUE TO MONITOR Q15MIN ROUNDS FOR SAFETY AND BEHAVIOR.
[2023-01-31 20:23] VITALS: BP 106/65
[2023-01-31] MEDS: TAMSULOSIN 0.4 MG CAP.SR.24H PO SCH (21:14)
[2023-01-31] MEDS: ATORVASTATIN 10 MG TABLET PO SCH (21:15)
[2023-02-01] MEDS: IBUPROFEN 600 MG TABLET PO PRN ×3 (05:02→21:14)
--- NOTE | 2023-02-01 05:05 | NUR ---
RN NOTES:PATIENT C/O RIGHT LEG PAIN 6/10 AND REQUESTING MOTRIN. MOTRIN 6OOMG P.O GIVEN PRN ORDER, WILL CONTINUE TO MONITOR.
[2023-02-01 08:00] VITALS: BP 114/64
[2023-02-01] MEDS: ENSURE ENLIVE CHOC 237 ML CAN PO SCH ×2 (08:11→16:45)
[2023-02-01] MEDS: risperiDONE 1 MG TABLET PO SCH ×2 (08:22→16:27)
[2023-02-01] MEDS: AMLODIPINE BESYLATE 5 MG TABLET PO SCH (08:23)
[2023-02-01] MEDS: LamoTRIgine 25 MG TABLET PO SCH ×2 (08:23→21:14)
[2023-02-01] MEDS: THERAHONEY GEL 1.5 OZ TUBE TP SCH (09:08)
--- NOTE | 2023-02-01 10:26 | NUR ---
JAX DISCHARGE NOTE (EARLY ENTRY 02/02/2023): Patient will be discharged to Assisted Living [facility] located at [address] [place] [address]; ([phone]). Patient will be provided with taxi. Patients brother Otilio ([phone]) has been notified. Admin [facility] ([phone]) has accepted pt. Patient is alert and oriented x3. Patient denies suicidal or homicidal ideation. Pt denies visual/auditory hallucinations. Pt will follow up with Dr. Mcclendon at the facility [address] [place], [place] [address]; ([phone]) who will provide and monitor pts psychotropic medications. Addendum: 02/05/23 at 1127 by JAX ZIMMERMAN discharge was canceled.
--- NOTE | 2023-02-01 11:59 | NUR ---
Facility Contact: JAX sent Tia admin ([phone]) 602A Form, covid test, medication, and chest x-ray. JAX faxed to ([phone]).
--- NOTE | 2023-02-01 15:27 | NUR ---
RN-NOTES PATIENT C/O RIGHT SHOULDER 6/10 PAIN AND REQUESTING MOTRIN. MOTRIN 6OOMG P.O GIVEN PRN ORDER.
[2023-02-01 16:00] VITALS: BP 110/63
--- NOTE | 2023-02-01 17:50 | NUR ---
RN-NOTES PATIENT IS VISIBLE IN THE UNIT AWAKE,A/O X3 ATTENDED GROUPS ,WATCHING TV.NO ACUTE DISTRESS NOTED.COMPLIANT WITH MEDICATIONS. NOTED PATIENT WITH NEEDY AND DEMANDING BEHAVIOR.ALL NEEDS ATTENDED AND ANTICIPATED.AMBULATORY STEADY GAIT. ONGOING WOUND TREATMENT ON RIGHT LEG OPEN WOUND. WILL CONT. MONITORING FOR SAFETY AND BEHAVIOR. WILL ENDORSE TO INCOMING NURSE FOR THE CONTINUITY OF CARE.
--- NOTE | 2023-02-01 19:30 | NUR ---
GPS RN NOTE, RECEIVED PATIENT AWAKE AND IN BED, NO S/S OR COMPLAINTS OF PAIN AT THIS TIME. PATIENT IS DISPLAYING NO S/S OF APPARENT DISTRESS AT THIS TIME. PATIENT BREATHING IS UNLABORED WITH EQUAL RISE AND FALL OF THE CHEST. PATIENT IS ALERT AND ORIENTED X 2 ON ROOM AIR WITH A SPO2 97%. PATIENT IS COMPLIANT WITH MEDICATIONS, CALM, PARANOID AT TIMES, POLITE, DEMANDING, AND COOPERATIVE. PATIENT DENIES SUICIDAL AND HOMICIDAL IDEATIONS AT THIS TIME. PATIENT ASSISTED WITH TURNING AND REPOSITIONING Q2HR AND PRN FOR COMFORT AND CIRCULATION. PATIENT HAS NO NEEDS AT THIS TIME. PATIENT EDUCATED ON THE USE OF THE CALL SOLORIO. PATIENT BED SIDE RAILS UP X 2 FOR SAFETY. PATIENT BED IS LOCKED AND LOW. WILL CONTINUE TO MONITOR THIS PATIENT Q15 MINUTES WITH THE HELP OF STAFF TO MAINTAIN SAFETY.
[2023-02-01 20:00] VITALS: BP 101/57
[2023-02-01] MEDS: TAMSULOSIN 0.4 MG CAP.SR.24H PO SCH (21:14)
[2023-02-01] MEDS: ATORVASTATIN 10 MG TABLET PO SCH (21:14)
--- NOTE | 2023-02-01 21:15 | NUR ---
GPS RN NOTE, PATIENT HAS A COMPLAINT OF CHRONIC RIGHT SHOULDER PAIN AT 6 OUT OF 10 ON THE PAIN SCALE. PATIENT VITAL SIGNS ARE STABLE. GAVE MOTRIN 600MG PO Q6HR PRN ORDERED. WILL REASSESS PAIN AND I WILL CONTINUE TO MONITOR THIS PATIENT WITH THE HELP OF STAFF.
[2023-02-02] MEDS: ACETAMINOPHEN 325 MG TABLET PO PRN ×2 (01:38→10:19)
--- NOTE | 2023-02-02 01:38 | NUR ---
GPS RN NOTE, PATIENT HAS A COMPLAINT OF CHRONIC RIGHT SHOULDER PAIN AT A 3 OUT OF 10 ON THE PAIN SCALE AND IS REQUESTING TYLENOL AT THIS TIME. PATIENT VITAL SIGNS ARE STABLE. GAVE TYLENOL 650MG PO Q6HR PRN ORDERED. WILL REASSESS PAIN AND I WILL CONTINUE TO MONITOR THIS PATIENT WITH THE HELP OF STAFF.
[2023-02-02] MEDS: IBUPROFEN 600 MG TABLET PO PRN ×2 (03:31→17:11)
[2023-02-02 08:00] VITALS: BP 124/72
[2023-02-02] MEDS: ENSURE ENLIVE CHOC 237 ML CAN PO SCH ×2 (08:01→17:09)
--- NOTE | 2023-02-02 08:02 | NUR ---
Dr. Couch gave an order to D/C hold and D/C to [facility]. Prescriptions were sent to the pharmacy.
[2023-02-02] MEDS: AMLODIPINE BESYLATE 5 MG TABLET PO SCH (08:26)
[2023-02-02] MEDS: LamoTRIgine 25 MG TABLET PO SCH ×2 (08:26→21:02)
[2023-02-02] MEDS: risperiDONE 1 MG TABLET PO SCH ×2 (08:26→17:09)
[2023-02-02] MEDS: THERAHONEY GEL 1.5 OZ TUBE TP SCH (08:30)
--- NOTE | 2023-02-02 10:21 | NUR ---
RN-NOTES PATIENT C/O SHOULDER PAIN AND REQUESTING TYLENOL, TYLENOL 650MG P.O GIVEN PRN ORDER.
--- NOTE | 2023-02-02 11:12 | NUR ---
Jordan MARINE DRAFTER made aware of the discharge and cleared for discharge. MARINE DRAFTER examined the wound and ordered Keflex 500 mg QID x10 days.
--- NOTE | 2023-02-02 11:20 | NUR ---
RN-NOTES PATIENT WATCHING TV IN THE DAY ROOM,CALM AND COMFORTABLE,DENIES ANY DISCOMFORT AT THIS TIME.NO ACUTE DISTRESS NOTED.
--- NOTE | 2023-02-02 11:52 | NUR ---
Updated medical prescriptions faxed to [facility] at [phone]
[2023-02-02] MEDS: CEPHALEXIN MONOHYDRATE 500 MG CAPSULE PO SCH ×3 (12:12→21:02)
--- NOTE | 2023-02-02 12:30 | NUR ---
RN-NOTES PATIENT HAD A DISCHARGE ORDER FROM DR. SAUCEDA ( PSYCHIATRIST) , BLANCA CARROLL ( MANAGER PROTEIN) MEDICALLY CLEARED PATIENT FOR DISCHARGE. PATIENT DID NOT VERBALIZE SI/HI,DENIES VISUAL /AUDITORY HALLUCINATIONS AT THE TIME OF DISCHARGE.PATIENT LEFT THE UNIT IN STABLE CONDITION,A/O X3,NO ACUTE DISTRESS NOTED. PATIENT IS AMBULATORY WITH STEADY GAIT.CHILDBIRTH AND INFANT CARE TEACHER BY [facility] [employer] . ALL BELONGINGS WAS GIVEN BACK TO THE PATIENT INCLUDING X1 WATCH AND X1 CELLPHONE AND CLOTHES.SEAT BUILDER NOTIFIED PATIENT'S BROTHER ANDERSON @ [phone] OF THE DISCHARGE.
--- NOTE | 2023-02-02 16:05 | NUR ---
RN-NOTES PATIENT IS BACK IN THE UNIT AWAKE, A/O X3,NO ACUTE DISTRESS NOTED AMBULATORY STEADY GAIT. DR. SAUCEDA MADE AWARE AND BLANCA CARROLL MADE AWARE. PER DR. CARROLL WILL CONT. SAME MEDICATIONS. ALL BELONGINGS WAS PLACE IN THE CONTRABAND AND SAFE. SOFTWARE ENGINEER DEVELOPER NOTIFIED PATIENT'S BROTHER ANDERSON @ [phone]. Addendum: 02/02/23 at 1913 by BETH PERALES RN PATIENT INSIST TO HAVE HIS WATCH WITH HIM.
[2023-02-02 16:10] VITALS: BP 129/67
--- NOTE | 2023-02-02 17:08 | NUR ---
Received a call from [employer] and telling that [facility] is not accepting the pt. because pt. is non ambulatory. Spoke to Tia admin of the facility said that pt. is non ambulatory and they can not take pt if non ambulatory. It Consultant told Tia that pt. is fully ambulatory from day 1 of admission until the discharge. It Consultant spoke to the pt. and said he doesn't like the place and doesn't want to stay. Spoke to Dr. Couch and said to tell them to call 911 since he was discharged already and per Tia she will not call 911 and she sent the pt. back to [facility]. Notified Irene that pt. is coming back to [facility] and said to cancel the discharge, readmit and resume hold. Pt. arrived in the unit at 1405 via a wheelchair and wheeled by [employer] mail truck driver with belongings. Pt. is alert/oriented x3,ambulatory and without distress. Per pt. said I don't like the place. Dr. Couch was notified and ordered to cancel the discharge, reinstate the 14 day hold and reinstate same psych meds. Contraband done and v/s taken. Will continue to monitor for safety.
--- NOTE | 2023-02-02 17:11 | NUR ---
RN-NOTES PATIENT C/O RIGHT SHOULDER 6/10 PAIN AND REQUESTING MOTRIN. MOTRIN 6OOMG P.O GIVEN PRN ORDER.
--- NOTE | 2023-02-02 17:54 | NUR ---
RN-NOTES PATIENT LYING IN BED INTERMITTENTLY SLEEPING,EASILY AROUSED A/O X3,CALM,NO ACUTE DISTRESS NOTED. NOTED PATIENT WITH NEEDY AND EASILY ANGRY BEHAVIOR. NEEDS FREQUENT REDIRECTIONS. ALL NEEDS ATTENDED AND ANTICIPATED. WILL CONT. MONITORING FOR SAFETY AND BEHAVIOR.WILL ENDORSE TO INCOMING NURSE FOR THE CONTINUITY OF CARE.
--- NOTE | 2023-02-02 19:20 | NUR ---
RN notes Received Pt from morning nurse. Pt is awake and laying in bed comfortably. Pt is alert and orientedX3, calm, disorganized, cooperative and directable. VS is stable. On room air. No SOB. No S/S of distress noted. Dressing on R leg is clean, intact and dry. Pt denies SI/HI at this time. Reality orientation provided. Snacks is offered. Safety precautions is maintained. Will continue to monitor Q 15 mins checks for safety and behavior.
--- NOTE | 2023-02-02 19:49 | NUR ---
GPS RN NOTE, PATIENT HAS A COMPLAINT OF CHRONIC RIGHT SHOULDER PAIN AT 6 OUT OF 10 ON THE PAIN SCALE REQUESTING MEDICATION STRONGER THAN MOTRIN AND TYLENOL. PATIENT VITAL SIGNS ARE STABLE. PAGED FRANCISCO PIZANO NP AND INFORMED HIM OF MY FINDINGS. FRANCISCO PIZANO NP ORDERED NORCO 5-325 1 TAB PO Q12HR PRN FOR SEVERE PAIN. ALL ORDERS NOTED AND CARRIED OUT. WILL CONTINUE TO MONITOR THIS PATIENT WITH THE HELP OF STAFF.
[2023-02-02 20:00] VITALS: BP 136/71
[2023-02-02] MEDS ORDERED: HYDROCODONE/APAP 5/325MG TABLET PO PRN (20:00)
[2023-02-02] MEDS: TAMSULOSIN 0.4 MG CAP.SR.24H PO SCH (21:02)
[2023-02-02] MEDS: ATORVASTATIN 10 MG TABLET PO SCH (21:02)
--- NOTE | 2023-02-03 05:02 | NUR ---
RN notes Wound care provided as ordered. Pt refuses kerlix wrap. Pt tolerated well
[2023-02-03 08:00] VITALS: BP 119/74
[2023-02-03] MEDS: AMLODIPINE BESYLATE 5 MG TABLET PO SCH (08:38)
[2023-02-03] MEDS: CEPHALEXIN MONOHYDRATE 500 MG CAPSULE PO SCH ×4 (08:38→20:54)
[2023-02-03] MEDS: ENSURE ENLIVE CHOC 237 ML CAN PO SCH ×2 (08:38→16:52)
[2023-02-03] MEDS: risperiDONE 1 MG TABLET PO SCH ×2 (08:38→16:52)
[2023-02-03] MEDS: LamoTRIgine 25 MG TABLET PO SCH ×2 (08:39→20:54)
[2023-02-03] MEDS: THERAHONEY GEL 1.5 OZ TUBE TP SCH (08:39)
--- NOTE | 2023-02-03 13:00 | NUR ---
NURSE NOTE: DRESSING CHANGE DONE. SANGUENOUS DISCHARGE NOTED. PT JOSE E WELL. WILL CONT TO MONITOR FOR SAFETY.
[2023-02-03 16:00] VITALS: BP 105/60
[2023-02-03] MEDS: IBUPROFEN 600 MG TABLET PO PRN (18:56)
--- NOTE | 2023-02-03 19:00 | NUR ---
NURSE NOTE: PT C/O PAIN REQUESTED MOTRIN. MOTRIN PO ADMINISTERED ORDERED. PT JOSE E WELL. WILL CONT TO MONITOR
[2023-02-03] MEDS: TAMSULOSIN 0.4 MG CAP.SR.24H PO SCH (21:03)
[2023-02-03] MEDS: ATORVASTATIN 10 MG TABLET PO SCH (21:04)
[2023-02-03 21:33] VITALS: BP 116/61
[2023-02-04 08:00] VITALS: BP 128/87
[2023-02-04] MEDS: ENSURE ENLIVE CHOC 237 ML CAN PO SCH ×2 (08:34→17:04)
[2023-02-04] MEDS: LamoTRIgine 25 MG TABLET PO SCH ×2 (08:35→20:47)
[2023-02-04] MEDS: risperiDONE 1 MG TABLET PO SCH ×2 (08:35→17:03)
[2023-02-04] MEDS: AMLODIPINE BESYLATE 5 MG TABLET PO SCH (08:36)
[2023-02-04] MEDS: CEPHALEXIN MONOHYDRATE 500 MG CAPSULE PO SCH ×4 (08:36→20:47)
[2023-02-04] MEDS: IBUPROFEN 600 MG TABLET PO PRN (08:39)
[2023-02-04] MEDS: THERAHONEY GEL 1.5 OZ TUBE TP SCH (08:39)
--- NOTE | 2023-02-04 08:39 | NUR ---
RN- NOTES MOTRIN ADMINISTERED DUE TO RIGHT ARM SORENESS.
[2023-02-04] MEDS: LORAZEPAM 1 MG TABLET PO PRN (12:42)
--- NOTE | 2023-02-04 12:46 | NUR ---
RN- NOTES ATIVAN ADMINISTERED DUE TO PATIENT YELLING PROFANITIES AT STAFF AND OTHER RESIDENTS.
[2023-02-04 16:00] VITALS: BP 100/62
--- NOTE | 2023-02-04 19:20 | NUR ---
RN OPENING NOTES RECEIVED PATIENT WALKING IN THE HALLWAY. THEN PATIENT AFTER TAKING SHOWER RESTING IN HIS BED. PATIENT IS A/O TIMES 3. NO PAIN NOTED. NO SOB NOTED. NO DISTRESS NOTED. ABLE TO MAKE NEEDS KNOWN IN AZERI LANGUAGE. BRP. AMBULATORY. ALL NEEDS ATTENDED. ALL SAFETY MEASURES IN PLACE. BED LOCKED IN THE LOWEST POSITION. TABLE IN EASY REACH. SIDE RAILS UP TIMES 2. WILL CONTINUE TO MONITOR CLOSELY.
[2023-02-04 19:47] VITALS: BP 104/61
[2023-02-04] MEDS: TAMSULOSIN 0.4 MG CAP.SR.24H PO SCH (22:33)
[2023-02-04] MEDS: ATORVASTATIN 10 MG TABLET PO SCH (22:33)
[2023-02-05] MEDS: IBUPROFEN 600 MG TABLET PO PRN ×2 (02:03→18:34)
--- NOTE | 2023-02-05 02:10 | NUR ---
RN NOTES PRN MOTRIN GIVEN AT 0203 AM PER PATIENT'S REQUEST FOR PAIN 7/10 GENERALIZED PAIN. WILL REASSESS IN 1 HOUR.
--- NOTE | 2023-02-05 06:21 | NUR ---
RN CLOSING NOTES PATIENT IS AWAKE AND RESTING IN HIS BED. PATIENT IS A/O TIMES 3. PATIENT HAD A GOOD SLEEP LAST NIGHT. NO PAIN NOTED. NO SOB NOTED. NO DISTRESS NOTED. COOPERATIVE. ABLE TO MAKE NEEDS KNOWN IN ISRAELI LANGUAGE. BRP. AMBULATORY. ALL NEEDS ATTENDED. ALL DUE MEDS GIVEN ORDERED. ALL SAFETY MEASURES IN PLACE. BED LOCKED IN THE LOWEST POSITION. TABLE IN EASY REACH. SIDE RAILS UP TIMES 2. WILL ENDORSE FOR PINKY.
[2023-02-05 08:00] VITALS: BP 132/81
[2023-02-05] MEDS: ENSURE ENLIVE CHOC 237 ML CAN PO SCH ×2 (08:02→16:35)
[2023-02-05] MEDS: AMLODIPINE BESYLATE 5 MG TABLET PO SCH (08:48)
[2023-02-05] MEDS: CEPHALEXIN MONOHYDRATE 500 MG CAPSULE PO SCH ×4 (08:48→20:50)
[2023-02-05] MEDS: risperiDONE 1 MG TABLET PO SCH ×2 (08:48→16:35)
[2023-02-05] MEDS: LamoTRIgine 25 MG TABLET PO SCH ×2 (08:51→20:50)
[2023-02-05] MEDS: THERAHONEY GEL 1.5 OZ TUBE TP SCH (09:07)
--- NOTE | 2023-02-05 11:26 | NUR ---
Facility Contact: Addendum: 02/05/23 at 1128 by JAX ZIMMERMAN JAX spoke with Sofiya thompson ([phone]) who stated that pt is accepted at [address] [place] [address]. Called [facility] ([phone]).
[2023-02-05] MEDS: LORAZEPAM 1 MG TABLET PO PRN (13:37)
[2023-02-05 16:00] VITALS: BP 136/81
--- NOTE | 2023-02-05 18:22 | NUR ---
RN- CLOSING NOTES PATIENT IS AWAKE, WATCHING TV IN THE DINING ROOM. A/O X2. PATIENT IS HYPERVERBAL, ANXIOUS, NEEDY, AGGRESSIVE, EASILY AGITATED, BUT MEDICATION COMPLIANT. PATIENT IS PERSEVERATING ON HIS CELL PHONE AND LAPTOP, REQUIRES FREQUENT REDIRECTION. PATIENT IS AMBULATORY WITHOUT ASSISTANCE. DENIES SI/HI AT THIS TIME. WILL CONTINUE TO MONITOR Q 15 MINUTES FOR SAFETY AND BEHAVIOR.
--- NOTE | 2023-02-05 18:34 | NUR ---
RN- NOTES MOTRIN GIVEN DUE TO COMPLAINTS OF SORENESS ON RIGHT LEG.
[2023-02-05 19:53] VITALS: BP 118/72
[2023-02-05] MEDS: TAMSULOSIN 0.4 MG CAP.SR.24H PO SCH (20:49)
[2023-02-05] MEDS: ATORVASTATIN 10 MG TABLET PO SCH (20:49)
[2023-02-06] MEDS: IBUPROFEN 600 MG TABLET PO PRN ×3 (00:18→20:24)
--- NOTE | 2023-02-06 00:18 | NUR ---
RN NOTES PATIENT COMPLAIN OF SORENESS AND PAIN AT THE RIGHT LEG. MOTRIN PO GIVEN AND WELL TOLERATED BY THE PATIENT. WILL CONTINUE TO MONITOR.
--- NOTE | 2023-02-06 05:56 | NUR ---
RN NOTES PATIENT COMPLAIN OF ITCHINESS ALL OVER THE BODY. INFORMED FOR THE SITUATION WITH ORDERS MADE AND CARRIED OUT. WILL CONTINUE TO MONITOR
[2023-02-06] MEDS ORDERED: diphenhydrAMINE HCL 25 MG CAPSULE PO PRN (06:00)
[2023-02-06] MEDS: VITAMINS A AND D 56.7 GM TUBE TP PRN (06:24)
[2023-02-06 08:00] VITALS: BP 102/49
[2023-02-06] MEDS: risperiDONE 1 MG TABLET PO SCH ×2 (08:28→17:12)
[2023-02-06] MEDS: ENSURE ENLIVE CHOC 237 ML CAN PO SCH ×2 (08:29→17:12)
[2023-02-06] MEDS: CEPHALEXIN MONOHYDRATE 500 MG CAPSULE PO SCH ×4 (08:29→20:16)
[2023-02-06] MEDS: LamoTRIgine 25 MG TABLET PO SCH ×2 (08:29→20:16)
[2023-02-06] MEDS: AMLODIPINE BESYLATE 5 MG TABLET PO SCH (08:30)
[2023-02-06] MEDS: THERAHONEY GEL 1.5 OZ TUBE TP SCH (08:34)
[2023-02-06 16:00] VITALS: BP 122/67
[2023-02-06 19:43] VITALS: BP 144/68
--- NOTE | 2023-02-06 20:24 | NUR ---
RN NOTE PRN MOTRIN GIVEN FOR GENERALIZED BODY PAIN TOLERATED WELL.
[2023-02-06] MEDS: TAMSULOSIN 0.4 MG CAP.SR.24H PO SCH (21:00)
[2023-02-06] MEDS: ATORVASTATIN 10 MG TABLET PO SCH (21:00)
[2023-02-07 08:00] VITALS: BP 110/59
--- NOTE | 2023-02-07 08:03 | NUR ---
SW Discharge Note: Patient will be discharged to [facility] located at [address] [place] [address]; ([phone]). Facility will orange picker pt between 1-2PM. Patients brother Otilio ([phone]) has been notified. Sofiya thompson ([phone]) is aware and agreeable of pt coming today. Patient is alert and oriented x3. Patient denies suicidal or homicidal ideation. Pt denies visual/auditory hallucinations. Pt will follow up with Dr. Irby at the facility [address] [place] [address]; ([phone]) who will provide and monitor pts psychotropic medications.
[2023-02-07] MEDS: CEPHALEXIN MONOHYDRATE 500 MG CAPSULE PO SCH ×2 (08:26→12:16)
[2023-02-07] MEDS: LamoTRIgine 25 MG TABLET PO SCH (08:26)
[2023-02-07] MEDS: risperiDONE 1 MG TABLET PO SCH (08:26)
[2023-02-07] MEDS: VITAMINS A AND D 56.7 GM TUBE TP PRN (08:26)
[2023-02-07 08:30] VITALS: BP 110/59
[2023-02-07] MEDS: AMLODIPINE BESYLATE 5 MG TABLET PO SCH (08:30)
[2023-02-07] MEDS: ENSURE ENLIVE CHOC 237 ML CAN PO SCH (08:40)
[2023-02-07] MEDS: THERAHONEY GEL 1.5 OZ TUBE TP SCH (09:06)
--- NOTE | 2023-02-07 13:50 | NUR ---
RN-NOTES PATIENT HAD A DISCHARGE ORDER FROM DR. SAUCEDA ( PSYCHIATRIST) , SETTER COLD ROLLING MACHINE JUICE ( TRENCH DIGGER) MEDICALLY CLEARED PATIENT FOR DISCHARGE. PATIENT WAS DISCHARGE TO [facility]. PATIENT DID NOT VERBALIZE SI/HI,DENIES VISUAL /AUDITORY HALLUCINATIONS AT THE TIME OF DISCHARGE.PATIENT LEFT THE UNIT IN STABLE CONDITION,A/O X3,NO ACUTE DISTRESS NOTED. PATIENT REFUSED TO SIGN DISCHARGE PAPERS AND VITAL SIGN TAKEN PRIOR TO DISCHARGE.PATIENT IS AMBULATORY WITH STEADY GAIT. ALL BELONGINGS WAS GIVEN BACK TO THE PATIENT INCLUDING X1 WATCH AND X1 CELLPHONE AND CLOTHES.RX WAS GIVEN TO THE PATIENT. INSTRUCTED PATIENT TO FOLLOW UP WITH PCP AND CALL 911 OR GO TO THE NEAREST ER INCASE OF EMERGENCY.PATIENT WAS ASSISTED IN THE LOBBY FOR SAFETY. PATIENT LEFT VIA TAXI .
== END 2023-02-07 13:50 | DRG 885 ==
LOC: ER 17:25 → GPS 01-22 06:01 → UNDODISIN 02-02 12:30 → GPS 02-02 17:02
PROVIDERS: ADMIT Psychiatry & Neurology Psychiatry; ATTEND Registered Nurse
DX: F31.64 Bipolar disorder, current episode mixed, severe, with psychotic features (principal); N39.0 Urinary tract infection, site not specified; F29 Unspecified psychosis not due to a substance or known physiological condition; F41.9 Anxiety disorder, unspecified; Z73.6 Limitation of activities due to disability; R73.9 Hyperglycemia, unspecified; G89.29 Other chronic pain; S81.811A Laceration without foreign body, right lower leg, initial encounter; X58.XXXA Exposure to other specified factors, initial encounter; E66.9 Obesity, unspecified; Y92.9 Unspecified place or not applicable; Z68.28 Body mass index [BMI] 28.0-28.9, adult; Z59.00 Homelessness unspecified; Z20.822 Contact with and (suspected) exposure to COVID-19
CPT/HCPCS: 36415; 70450-TC; 71045-TC; 80048-TC; 80053-TC; 80061-TC; 80076-TC; 81001; 82962-TC; 84443-TC; 85025-TC; 87081-TC; 93971-TC; 97112-TC; 97116-TC; 97530-TC; A6253; C9803; G0480; J1200; J1630; J2060; J3490; Q0163

== ENCOUNTER 2023-02-10 11:47 | Emergency (ER) | payer MEDICARE, BC ==
[~2023-02-10] VITALS: Ht 185.4 cm; Wt 83.9 kg
[~2023-02-10 11:47] MED LIST: AMLO-212 PO; ATOR10TA PO; GABA-532 PO; HALO5SYR IM; IBUP-1955 PO; LAMO100T17 PO; LORA-259 PO; OMEP20CA15 PO; QUET200T PO; TAMS-12 PO; TRAZ-182 PO
--- NOTE | 2023-02-10 12:35 | NUR ---
C/O CONSTIPATION SINCE MIDNIGHT. PT DENIES ABDOMINAL PAIN. NO NAUSEA, NO VOMITING.
[2023-02-10] MEDS ORDERED: POLYETHYLENE GLYCOL 3350 17 GM POWD.PACK PO ONE (13:00)
--- NOTE | 2023-02-10 13:00 | NUR ---
AT BEDSIDE FOR EVAL
[2023-02-10] MEDS ORDERED: BISACODYL (5 MG) 5 MG TABLET.DR PO ONE (14:00)
[2023-02-10] MEDS ORDERED: BISACODYL (5 MG) 5 MG TABLET.DR ONE (14:00)
--- NOTE | 2023-02-10 14:15 | NUR ---
Patient discharged to home in stable condition. Written and verbal after care instructions given. Patient verbalizes understanding of instruction.
[2023-02-10 14:17] VITALS: BP 131/84
== END 2023-02-10 14:17 | disposition home or self-care (01) ==
LOC: EDUNIT# 11:47 → ER 12:01
DX: K59.00 Constipation, unspecified (principal); Z79.899 Other long term (current) drug therapy; Z88.8 Allergy status to other drugs, medicaments and biological substances

== ENCOUNTER 2023-02-12 21:16 | Inpatient (IN) | payer MEDICARE, BC ==
[~2023-02-12] VITALS: Ht 185.4 cm; Wt 83.9 kg
--- NOTE | 2023-02-12 21:38 | NUR ---
PT [facility]D FROM [facility] ON A HOLD DUE TO AGRESSION. PLACED IN BED 14 ON MONITOR AND PULSE OX. SITTER AT BEDSIDE. MD AT BEDSIDE FOR EVAL. AWAITING ORDERS.
[2023-02-12 21:50] LABS: BASOPHILS # (AUTO) 0.2 K/uL (0.0-0.2); BASOPHILS % (AUTO) 1.9 % (0.0-2.0); EOSINOPHILS % (AUTO) 1.1 % (0.0-6.0); HEMATOCRIT 36 % (39-51); LYMPHOCYTES # (AUTO) 2.3 K/uL (0.8-4.8); LYMPHOCYTES % (AUTO) 24.6 % (20.0-44.0); MEAN CORPUSCULAR HGB CONC 33 g/dl (31.0-36.0); MEAN CORPUSCULAR VOLUME 88 fL (80-96); MONOCYTES # (AUTO) 0.9 K/uL (0.1-1.30); NEUTROPHILS # (AUTO) 5.9 K/uL (1.8-8.9); NEUTROPHILS % (AUTO) 62.4 % (43.0-81.0); PLATELET COUNT (AUTO) 304 K/uL (150-450); RED BLOOD CELL COUNT(AUTO) 4.15 MIL/uL (4.5-6.0); WHITE BLOOD COUNT (AUTO) 9.5 K/uL (4.3-11.0)
[2023-02-12 22:13] LABS: ALANINE AMINOTRANSFERASE 51 U/L (12-78); ALBUMIN 3.6 g/dL (3.4-5.0); ALKALINE PHOSPHATASE 115 U/L (46-116); ASPARTATE AMINOTRANSFERASE 24 U/L (15-37); BILIRUBIN,DIRECT 0.1 mg/dL (0.0-0.2); BILIRUBIN,TOTAL 0.4 mg/dL (0.2-1.0); CALCIUM, SERUM 9.3 mg/dL (8.5-10.1); CARBON DIOXIDE 25 mmol/L (21-32); CHLORIDE 101 mmol/L (98-107); CREATININE 0.7 mg/dL (0.6-1.3); GLUCOSE 106 mg/dL (74-106); POTASSIUM 3.8 mmol/L (3.5-5.1); SODIUM SERUM 134 mmol/L (136-145); UREA NITROGEN, BLOOD 18 mg/dL (7-18)
[2023-02-12 22:21] LABS: ALCOHOL, BLOOD < 3 mg/dL (0-0)
[2023-02-12] MEDS ORDERED: diphenhydrAMINE HCL 50 MG/ML VIAL IM ONE (23:30)
[2023-02-12] MEDS ORDERED: HALOPERIDOL LACTATE INJ 5 MG/ML VIAL IM ONE (23:30)
[2023-02-12] MEDS ORDERED: LORAZEPAM INJ 2 MG/ML VIAL IM ONE (23:30)
--- NOTE | 2023-02-13 02:54 | NUR ---
REPORT GIVEN TO CIERA MOLINA FOR PINKY
--- NOTE | 2023-02-13 03:29 | NUR ---
RN note: Patient refused MRSA swab .Will endorse to AM shift.
[2023-02-13] MEDS ORDERED: MAG HYDROX/AL HYDROX/SIMETH 30 ML UDC PO PRN (03:30)
[2023-02-13] MEDS ORDERED: TEMAZEPAM 7.5 MG CAPSULE PO PRN (03:30)
[2023-02-13] MEDS ORDERED: clonazePAM 0.5 MG TABLET PO PRN (03:30)
[2023-02-13] MEDS ORDERED: MAGNESIUM HYDROXIDE 30 ML UDC PO PRN (03:30)
[2023-02-13] MEDS ORDERED: ACETAMINOPHEN 325 MG TABLET PO PRN (03:30)
[2023-02-13] MEDS ORDERED: BLOOD SUGAR DIAGNOSTIC 1 EACH STRIP IN ONE (03:30)
--- NOTE | 2023-02-13 05:30 | NUR ---
RN note: Will endorse to AM RN to continue the admission interventions..Please follow up MD for med recon.
--- NOTE | 2023-02-13 05:31 | NUR ---
RN note : Admitted this 73 y/o male who was placed on 5150 hold for DTO/GD by PMRT. Patient was medically cleared at [facility] ED.Per hold, patient was physically and verbally aggressive towards staff at [facility]. Upon face to face assessment,patient appears to be alert,oriented x 2-3, disheveled,unkempt,loud , difficult to redirect.Patient was contraband and placed belongings in safe.Reviewed Patient Rights and verbalized understanding.Patient was oriented to unit .MD's notified of the admission.MARCK Smith was informed to reconcile home medications.No s/s of acute distress noted.Sin assessment done and noted wound on his right lower leg that is dry and skin discoloration on left arm.Will continue to monitor q15 min rounds for safety.
[2023-02-13 08:00] VITALS: BP 127/71
--- NOTE | 2023-02-13 08:27 | NUR ---
WOUND CARE CONSULT: PT ADMITTED WITH RT LOWER LEG WOUND. DR PUENTE CALLED FOR DPM CONSULT. MD IN AGREEMENT WITH PLAN OF CARE. CURRENT ANTHONY SCORE IS 19.
--- NOTE | 2023-02-13 09:24 | NUR ---
JAX Initial Discharge Note: Patient was currently residing at [facility] located at [address] [place] [address]; ([phone]).Sofiya thompson ([phone]) stated pt is not welcomed back due to aggressive behavior. JAX will contact pt's brother Jonathon ([phone]) and will discuss treatment/discharge plan. JAX will work with the MD, family, and treatment team.
--- NOTE | 2023-02-13 09:25 | NUR ---
Treatment Plan: Pt refused to sign the treatment plan and was verbally abusive.
--- NOTE | 2023-02-13 09:25 | NUR ---
JAX Clinical Note: Pt placed on a 5150 hold due to danger to others. Pt was physically and verbally aggressive at the facility. Patient was currently residing at [facility] located at [address] [place] [address]; ([phone]).Sofiya thompson ([phone]) stated pt is not welcomed back due to aggressive behavior. SW will contact pt's brother Jonathon ([phone]) and will discuss treatment/discharge plan.
[2023-02-13] MEDS ORDERED: HALOPERIDOL LACTATE INJ 5 MG/ML VIAL IM ONE (10:00)
[2023-02-13] MEDS ORDERED: diphenhydrAMINE HCL 50 MG/ML VIAL IM ONE (10:00)
[2023-02-13] MEDS ORDERED: CEPH500C2 PO (10:30)
[2023-02-13] MEDS ORDERED: RISP0.2515 PO (10:31)
--- NOTE | 2023-02-13 11:05 | NUR ---
Facility Contact: JAX contacted [facility] ([phone]) and spoke with Myesha admin who stated that they are accepting pt. JAX faxed pt's facesheet ([phone]).
--- NOTE | 2023-02-13 11:09 | NUR ---
Family Contact: JAX contacted pt's brother Higinio ([phone]) and notified of admission. JAX requested for him to fax over the DPOA paperworks as he claims that he is the DPOA. JAX notified he is not welcomed back to the [facility]. Addendum: 02/13/23 at 1110 by JAX ZIMMERMAN JAX was unable to leave a voicemail and mailbox was full.
[2023-02-13 11:36] LABS: CHOLESTEROL 114 mg/dL (<200); HDL CHOLESTEROL 42 mg/dL (40-60); LDL 69 mg/dL (0-99); TRIGLYCERIDES 77 mg/dL (30-150)
[2023-02-13 13:57] LABS: CREATININE 0.7 mg/dL (0.6-1.3)
[2023-02-13 16:00] VITALS: BP 128/74
[2023-02-13] MEDS ORDERED: ZOLPIDEM TARTRATE 5 MG TABLET PO PRN (16:30)
[2023-02-13] MEDS: risperiDONE 1 MG TABLET PO SCH ×2 (17:00→17:43)
[2023-02-13] MEDS: CEPHALEXIN MONOHYDRATE 500 MG CAPSULE PO SCH ×2 (17:43→21:43)
--- NOTE | 2023-02-13 18:37 | NUR ---
Patient agitated and assaultive behavior ,verbally abusive toward staff seen by with new order Haldol 5mg IM and Benadryl 25mg IM patient voluntarily accept injection and request it ,patient tolerate injection well ,no SOB ,no s/s of distress ,will continue to monitor for safety minutes . Addendum: 02/13/23 at 1843 by DOT SHAFER injection given at 10:01
[2023-02-13 20:41] VITALS: BP 124/72
[2023-02-13] MEDS: TAMSULOSIN 0.4 MG CAP.SR.24H PO SCH (21:43)
[2023-02-13] MEDS: ATORVASTATIN 10 MG TABLET PO SCH (21:43)
[2023-02-13] MEDS: LamoTRIgine 25 MG TABLET PO SCH (21:43)
[2023-02-13] MEDS: LORAZEPAM 1 MG TABLET PO PRN (22:24)
[2023-02-14 08:00] VITALS: BP 123/83
[2023-02-14] MEDS: risperiDONE 1 MG TABLET PO SCH ×2 (08:07→17:00)
[2023-02-14] MEDS: LORAZEPAM 1 MG TABLET PO PRN (08:07)
[2023-02-14] MEDS: CEPHALEXIN MONOHYDRATE 500 MG CAPSULE PO SCH ×4 (08:07→21:43)
--- NOTE | 2023-02-14 08:07 | NUR ---
RN- NOTES ATIVAN GIVEN DUE TO INCREASED AGITATION, YELLING, AND AGGRESSIVE BEHAVIOR TOWARDS STAFF.
[2023-02-14] MEDS: AMLODIPINE BESYLATE 5 MG TABLET PO SCH (08:08)
[2023-02-14] MEDS: LamoTRIgine 25 MG TABLET PO SCH ×2 (08:08→21:43)
--- NOTE | 2023-02-14 09:17 | NUR ---
RN- NOTES HALDOL 5MG AND BENADRYL 25MG IM ORDERED DUE TO INCREASED AGITATION, YELLING, GRABBING AND THREATENING DOCTOR/STAFF.
--- NOTE | 2023-02-14 09:25 | NUR ---
RN- NOTES HALDOL 5MG AND BENADRYL 25MG IM ADMINISTERED IN RIGHT BUTTOCK. PATIENT AGITATED, YELLING/PROFANITY AT STAFF, AND HITTING AND KICKING STAFF.
[2023-02-14] MEDS ORDERED: HALOPERIDOL LACTATE INJ 5 MG/ML VIAL IM ONE ×2 (09:30→15:30)
[2023-02-14] MEDS ORDERED: diphenhydrAMINE HCL 50 MG/ML VIAL IM ONE ×2 (09:30→15:30)
--- NOTE | 2023-02-14 15:30 | NUR ---
RN- NOTES HALDOL 5MG AND BENADRYL 50MG IM ORDERED AND ADMINISTERED IN RIGHT BUTTOCK DUE TO INCREASED AGITATION, AGGRESSIVE BEHAVIOR, AND THROWING ITEMS AT STAFF.
--- NOTE | 2023-02-14 15:50 | NUR ---
RN- NOTES PATIENT FOUND ON THE FLOOR OF THE DINING ROOM, BLEEDING AND A LACERATION ON THE RIGHT EYEBROW NOTED. MEASUREMENT OF 2CM NOTED WITH PICTURE TAKEN AND PLACED IN CHART. LACERATION CLEANED, COVERED WITH A DRY DRESSING. NOTIFIED. Addendum: 02/14/23 at 1825 by SUDARSHAN DENISE RN INCIDENT COMPLETED, UNIQUE ID: [id number]
[2023-02-14 16:00] VITALS: BP 116/75
--- NOTE | 2023-02-14 16:00 | NUR ---
RN- NOTES VITAL SIGNS TAKEN, B/P: 117/71, P: 74, R: 18, T: 97.6, O2 SAT: 98% ON ROOM AIR.
--- NOTE | 2023-02-14 16:15 | NUR ---
Dr. Weber made aware of the incident and ordered to send pt. to ER for suturing of the laceration on the right upper eyebrow and CT of the head without contrast.
--- NOTE | 2023-02-14 16:25 | NUR ---
RN- NOTES BROTHER CALLED AND NOTIFIED OF INCIDENT.
--- NOTE | 2023-02-14 17:05 | NUR ---
RN- NOTES PATIENT SENT TO ER FOR SUTURES AND CT SCAN OF THE HEAD WITHOUT CONTRAST, PER MD ORDERS.
--- NOTE | 2023-02-14 17:16 | NUR ---
RN- NOTES MEDICATION HELD DUE TO A STAT ORDER OF SENDING THE PATIENT DOWN TO ER FOR SUTURING OF RIGHT EYEBROW LACERATION.
--- NOTE | 2023-02-14 17:28 | NUR ---
Dr. Couch made aware of the fall incident and that pt. was sent to ER
--- NOTE | 2023-02-14 19:00 | NUR ---
RN- NOTES PATIENT RETURNED TO THE FLOOR FROM THE ER. SUTURES ON RIGHT EYEBROW NOTED AND CT SCAN OF THE HEAD WITH NO CONTRAST DONE.
--- NOTE | 2023-02-14 19:26 | NUR ---
GPS DEBURRER MACHINE NOTE: RCVD IN BED ,SITTING, HAVING HIS DINNER, BREATHING EVEN AND UNLABORED, NOTED WITH R. EYE AREA WITH LACERATION , WOUND DRESSING ON , NO S/SX OF BLEEDING, PT IS VERBALLY ABUSIVE , VERY DEMANDING, AND HYPER VERBAL. WILL CONT TO MONITOR PT'S SAFETY AND ANTICIPATE NEEDS.
[2023-02-14 20:20] VITALS: BP 122/75
[2023-02-14] MEDS: TAMSULOSIN 0.4 MG CAP.SR.24H PO SCH (21:44)
[2023-02-14] MEDS: ATORVASTATIN 10 MG TABLET PO SCH (21:44)
--- NOTE | 2023-02-14 22:48 | NUR ---
GPS BIOLOGICAL AIDE NOTE PT COMPLIANT WITH HIS MEDICATIONS, NOTED HYPERVERBAL AND VERY DEMANDING , NEEDY, EASILY IRRITABLE. FREQUENTLY ASKING FOR SNACKS, SANDWICH GIVEN. 30 MINS AFTER TAKING HIS MEDS AND AFTER EATING, PT WENT TO HIS BED. CURRENTLY SLEEPING AT THIS TIME. WILL CONTINUE TO MONITOR BEHAVIOR AND SAFETY Q 15 MINS AND ANTICIPATE NEEDS.
--- NOTE | 2023-02-15 00:26 | NUR ---
GPS CURRENCY MACHINE OPERATOR NOTE PT SLEEPING AT THIS TIME, BREATHING EVEN AND UNLABORED. NO S/SX OF DISTRESS, EASY TO AROUSE. SAFETY MEASURES OBSERVED. WILL CONT TO MONITOR Q 15 MINS PT'S BEHAVIOR AND SAFETY.
--- NOTE | 2023-02-15 03:16 | NUR ---
GPS SPECIAL TECHNICAL OPERATIONS OFFICER NOTE PT SLEEPING, EASY TO AROUSE, NO S/SX OF RESP.DISTRESS. CONT TO MONITOR Q15 MINS - BEHAVIOR AND SAFETY.
--- NOTE | 2023-02-15 06:04 | NUR ---
GPS RN CLINICAL APPEALS NOTE PT STILL SLEEPING AT THIS TIME, EASY TO AROUSE. NO S/SX OF RESP.DISTRESS,NO CHANGE IN LOC NOTED THROUGHOUT THE SHIFT, PT ABLE TO MAKE HIS NEEDS KNOW, ABLE TO VERBALIZED NEEDS. TOLERATED HIS MEDS DURING SHIFT. SAFETY MEASURES OBSERVED. WILL ENDORSE CONTINUITY OF CARE TO AM ONCOMING NURSE.
--- NOTE | 2023-02-15 07:03 | NUR ---
WOUND CARE CONSULT: PT PRESENTS WITH SUTURED LACERATION TO RT EYEBROW AREA. NO ACTIVE DRAINAGE NOTED. PT NOTED TO HAVE RT LOWER LEG DRY ESCHAR WHICH WAS PRESENT ON ADMISSION. PT IS INDEPENDENT AT THIS TIME WITH BED MOBILITY AND IS CONTINENT. DISCUSSED SKIN PROTECTION WITH NURSING STAFF. MD IN AGREEMENT WITH PLAN OF CARE.
[2023-02-15 08:00] VITALS: BP 106/65
[2023-02-15] MEDS: CEPHALEXIN MONOHYDRATE 500 MG CAPSULE PO SCH ×2 (08:47→13:04)
[2023-02-15] MEDS: risperiDONE 1 MG TABLET PO SCH ×2 (08:48→17:18)
[2023-02-15] MEDS: AMLODIPINE BESYLATE 5 MG TABLET PO SCH (08:48)
[2023-02-15] MEDS: LamoTRIgine 25 MG TABLET PO SCH ×2 (08:48→20:51)
[2023-02-15] MEDS ORDERED: VITAMINS A AND D 56.7 GM TUBE TP PRN (11:30)
[2023-02-15] MEDS ORDERED: DIVALPROEX SODIUM 250 MG TABLET.DR PO SCH (13:00)
[2023-02-15 16:00] VITALS: BP 100/60
[2023-02-15] MEDS: ENSURE ENLIVE CHOC 237 ML CAN PO SCH (17:17)
[2023-02-15] MEDS: IBUPROFEN 600 MG TABLET PO PRN (17:18)
--- NOTE | 2023-02-15 19:32 | NUR ---
RN NOTES: PATIENT RESTING HIS ROOM,A/OX2 BREATHING EVEN AND UNLABORED WITH NO S/S OF DISTRESS. PATIENT IS ANXIOUS, EASILY AGITATED GUARDED, PARNOID, HYPERVERBAL , NEEDY, DEMENDANDING PATIENT IS MEDICATION COMPLIANT. ENCOURAGED PATIENT TO VERBALIZED ANY FEELING OR CONCERN . DENIES SI/HI AND AUDITORY/VISUAL HALLUCINATIONS AT THIS TIME. WILL CONTINUE TO MONITOR Q 15 MINUTES FOR SAFETY AND BEHAVIOR.
[2023-02-15] MEDS: ATORVASTATIN 10 MG TABLET PO SCH (22:06)
[2023-02-15] MEDS: TAMSULOSIN 0.4 MG CAP.SR.24H PO SCH (22:06)
--- NOTE | 2023-02-16 05:46 | NUR ---
RN NOTES: PATIENT RESTING IN ROOM AND 7 HOURS OF SLEEP NO S/SX OF ACUTE DISTRESS NOTED. PATIENT EASILY AGITATED,PARANOID,DISORGNIZED, HYPERVERBAL, FORGETFUL ,MED COMPLIANT , COOPERATIVE TO CARE.ALL NEEDS ATTENDED AND ANTICIPATED, NEEDS FREQUENTLY REDIRECTIONS, DENIES SI/HI/AVH AT THIS TIME. SAFETY PRECAUTIONS MAINTAINED. ENCOURAGED TO VERBALIZED ANY FEELING OR CONCERN ,WILL CONTINUE TO MONITOR Q15MIN ROUNDS FOR SAFETY AND BEHAVIOR.
[2023-02-16 08:00] VITALS: BP 127/71
[2023-02-16] MEDS: ENSURE ENLIVE CHOC 237 ML CAN PO SCH ×2 (08:45→17:15)
[2023-02-16] MEDS: risperiDONE 1 MG TABLET PO SCH ×2 (08:45→16:35)
[2023-02-16] MEDS: LamoTRIgine 25 MG TABLET PO SCH ×2 (08:45→20:42)
[2023-02-16] MEDS: AMLODIPINE BESYLATE 5 MG TABLET PO SCH (08:46)
--- NOTE | 2023-02-16 11:20 | NUR ---
RN-NOTES RECEIVED T.O ORDER FROM DR. MUNOZ TO CHANGE DIET TO REGULAR . NOTED AND CARRIED OUT.
[2023-02-16 16:00] VITALS: BP 113/59
--- NOTE | 2023-02-16 18:15 | NUR ---
RN-NOTES PATIENT VISIBLE IN THE UNIT STAYS IN THE DAY ROOM WATCHING TV MOST OF THE TIME ,A/O X2, GUARDED,NOTED WITH EASILY ANGRY,IRRITABLE, ARGUMENTATIVE BEHAVIOR.NO ACUTE DISTRESS NOTED.COMPLIANT WITH MEDICATIONS. AMBULATORY STEADY GAIT.ABLE TO MAKE NEEDS KNOWN TO THE STAFF. ALL NEEDS ATTENDED AND ANTICIPATED. WILL CONT. MONITORING FOR SAFETY AND BEHAVIOR. WILL ENDORSE TO INCOMING NURSE FOR THE CONTINUITY OF CARE.
--- NOTE | 2023-02-16 19:43 | NUR ---
RN NOTES: PATIENT WATCHING TV IN ACTIVITY ROOM,A/OX2 BREATHING EVEN AND UNLABORED WITH NO S/S OF DISTRESS. PATIENT IS ANXIOUS, EASILY AGITATED GUARDED, PARNOID, HYPERVERBAL , NEEDY, DEMENDANDING PATIENT IS MEDICATION COMPLIANT. ENCOURAGED PATIENT TO VERBALIZED ANY FEELING OR CONCERN . DENIES SI/HI AND AUDITORY/VISUAL HALLUCINATIONS AT THIS TIME. WILL CONTINUE TO MONITOR Q 15 MINUTES FOR SAFETY AND BEHAVIOR.
[2023-02-16 20:18] VITALS: BP 118/66
[2023-02-16] MEDS: TAMSULOSIN 0.4 MG CAP.SR.24H PO SCH (21:08)
[2023-02-16] MEDS: ATORVASTATIN 10 MG TABLET PO SCH (21:09)
[2023-02-16] MEDS: IBUPROFEN 600 MG TABLET PO PRN (21:09)
[2023-02-17 08:00] VITALS: BP 148/68
[2023-02-17] MEDS: ENSURE ENLIVE CHOC 237 ML CAN PO SCH ×2 (08:29→17:36)
[2023-02-17] MEDS: AMLODIPINE BESYLATE 5 MG TABLET PO SCH (08:31)
[2023-02-17] MEDS: LamoTRIgine 25 MG TABLET PO SCH ×2 (08:31→21:14)
[2023-02-17] MEDS: risperiDONE 1 MG TABLET PO SCH ×2 (08:31→17:36)
[2023-02-17] MEDS: IBUPROFEN 600 MG TABLET PO PRN ×2 (09:55→23:30)
[2023-02-17 16:00] VITALS: BP 116/68
[2023-02-17 20:23] VITALS: BP 101/57
[2023-02-17] MEDS: ATORVASTATIN 10 MG TABLET PO SCH (21:14)
[2023-02-17] MEDS: TAMSULOSIN 0.4 MG CAP.SR.24H PO SCH (21:15)
--- NOTE | 2023-02-17 23:30 | NUR ---
BARIATRIC SURGEON NOTES PT COMPLAINED OF GENERALIZED PAIN , MOTRIN PO GIVEN ORDERED.
--- NOTE | 2023-02-18 06:30 | NUR ---
JACKER NOTES PT RESTING COMFORTABLY IN BED WITHOUT ANY DISTRESS OR ANY DISCOMFORT NOTED.ALL DUE MEDS GIVEN AND ALL NEEDS MET. KEPT HIM WARM AND COMFORTABLE AT ALL TIMES. STABLE THROUGHOUT THE NIGHT AFTER NIGHT MEDS GIVEN. BED IN LOW AND LOCK IN POSITION. WILL CONTINUE MONITORING.
[2023-02-18 08:00] VITALS: BP 100/66
[2023-02-18] MEDS: ENSURE ENLIVE CHOC 237 ML CAN PO SCH ×2 (08:28→17:13)
[2023-02-18] MEDS: AMLODIPINE BESYLATE 5 MG TABLET PO SCH (09:00)
[2023-02-18] MEDS: LamoTRIgine 25 MG TABLET PO SCH ×2 (09:01→20:35)
[2023-02-18] MEDS: risperiDONE 1 MG TABLET PO SCH ×2 (09:01→17:13)
[2023-02-18 16:00] VITALS: BP 98/63
[2023-02-18] MEDS: IBUPROFEN 600 MG TABLET PO PRN ×2 (17:48→23:34)
--- NOTE | 2023-02-18 17:48 | NUR ---
PT C/O OF SHOULDER PAIN 01/25 PRN MOTRIN 600MG GIVEN 1748. WILL CONTINUE TO MONITOR.
[2023-02-18 19:44] VITALS: BP 123/71
[2023-02-18] MEDS: NEOMY SULF/BACITRAC ZN/POLY 15 GM TUBE TP SCH (20:56)
[2023-02-18] MEDS: ATORVASTATIN 10 MG TABLET PO SCH (21:17)
[2023-02-18] MEDS: TAMSULOSIN 0.4 MG CAP.SR.24H PO SCH (21:18)
[2023-02-19] MEDS: IBUPROFEN 600 MG TABLET PO PRN ×3 (00:01→17:44)
--- NOTE | 2023-02-19 00:33 | NUR ---
RN note: Patient c/o of body pain 5/10,requested and given Motrin 600 mg PO as ordered.
[2023-02-19 08:00] VITALS: BP 114/68
[2023-02-19] MEDS: ENSURE ENLIVE CHOC 237 ML CAN PO SCH ×2 (08:47→16:12)
[2023-02-19] MEDS: AMLODIPINE BESYLATE 5 MG TABLET PO SCH (08:55)
[2023-02-19] MEDS: LamoTRIgine 25 MG TABLET PO SCH ×2 (08:55→21:17)
[2023-02-19] MEDS: risperiDONE 1 MG TABLET PO SCH ×2 (08:55→16:12)
[2023-02-19] MEDS: NEOMY SULF/BACITRAC ZN/POLY 15 GM TUBE TP SCH (08:56)
--- NOTE | 2023-02-19 10:28 | NUR ---
Court Notification: SW attempted to contact pt's brother Jonathon ([phone]) and was unable to notify of 2049.
--- NOTE | 2023-02-19 10:28 | NUR ---
Court Hearing: Patient's court hearing for 8940 was today and it was upheld for GD.
[2023-02-19 16:00] VITALS: BP 116/52
--- NOTE | 2023-02-19 18:43 | NUR ---
DEPUTY BRAND INSPECTOR NOTES PATIENT IN ACTIVITY ROOM WATCHING TV, BREATHING EVEN AND UNLABORED WITH NO S/S OF DISTRESS. PATIENT IS ANXIOUS, GUARDED, PARANOID, MEDICATION COMPLIANT. ENCOURAGED PATIENT TO VERBALIZED ANY FEELING OR CONCERN . DENIES SI/HI AND AUDITORY/VISUAL HALLUCINATIONS AT THIS TIME. WILL ENDORSE TO SOLUTION CONSULTANT NURSE
[2023-02-19 20:04] VITALS: BP 105/62
[2023-02-19] MEDS: ATORVASTATIN 10 MG TABLET PO SCH (21:17)
[2023-02-19] MEDS: TAMSULOSIN 0.4 MG CAP.SR.24H PO SCH (21:23)
[2023-02-20] MEDS: IBUPROFEN 600 MG TABLET PO PRN ×2 (06:12→17:45)
[2023-02-20 08:00] VITALS: BP 117/68
[2023-02-20] MEDS: risperiDONE 1 MG TABLET PO SCH ×2 (08:23→17:14)
[2023-02-20] MEDS: AMLODIPINE BESYLATE 5 MG TABLET PO SCH (08:23)
[2023-02-20] MEDS: LamoTRIgine 25 MG TABLET PO SCH ×2 (08:23→21:16)
[2023-02-20] MEDS: NEOMY SULF/BACITRAC ZN/POLY 15 GM TUBE TP SCH (08:24)
[2023-02-20] MEDS: ENSURE ENLIVE CHOC 237 ML CAN PO SCH ×2 (08:24→17:14)
[2023-02-20 16:00] VITALS: BP 130/82
[2023-02-20 20:54] VITALS: BP 127/68
[2023-02-20] MEDS: ATORVASTATIN 10 MG TABLET PO SCH (21:16)
[2023-02-20] MEDS: TAMSULOSIN 0.4 MG CAP.SR.24H PO SCH (21:16)
[2023-02-21] MEDS: IBUPROFEN 600 MG TABLET PO PRN (06:15)
--- NOTE | 2023-02-21 07:56 | NUR ---
JAX Discharge Note: Pt will be discharged to [facility] located at [address] [place] [address]; ([phone]). Please arrange ambulance at 1PM. JAX attempted to contact pts brother Jonathon ([phone]) and was unable to leave a voicemail. Upon discharge, the pt appears to be in a dysphoric mood and presented with a congruent affect. Pt appears to be alert and oriented x2 (place, self). Pt denies both suicidal and homicidal ideation as well as auditory and visual hallucinations. Pt appears to be ambulatory with a steady gait. Pt will be under the care of her psychiatrist, Dr. Rivas, [address] [place] [address]; ([phone]).. Pt will be under the care of maintenance service supervisor, Dr. Michaud, located [address] [place] [address]; ([phone]). The choice of vendor form and multidisciplinary exit care form were done, printed, signed, and given to the patient.
[2023-02-21 08:00] VITALS: BP_SYST 114; BP_SYST 119; BP_DIAS 62; BP_DIAS 75
[2023-02-21] MEDS: ENSURE ENLIVE CHOC 237 ML CAN PO SCH (08:28)
--- NOTE | 2023-02-21 09:09 | NUR ---
Dr. Blackwell gave an order to D/C hold and D/C to [facility] and to follow up with psych and medical doctors. Dr. Couch ordered to continue same meds including prn.
[2023-02-21] MEDS: LamoTRIgine 25 MG TABLET PO SCH (09:15)
[2023-02-21 09:16] VITALS: BP 117/75
[2023-02-21] MEDS: risperiDONE 1 MG TABLET PO SCH (09:16)
[2023-02-21] MEDS: NEOMY SULF/BACITRAC ZN/POLY 15 GM TUBE TP SCH (09:16)
[2023-02-21] MEDS: AMLODIPINE BESYLATE 5 MG TABLET PO SCH (09:16)
--- NOTE | 2023-02-21 09:43 | NUR ---
Dr. Steward made aware of the discharge and reconciled meds to continue in the facility.
--- NOTE | 2023-02-21 13:49 | NUR ---
RN DISCHARGED NOTES Pt discharged to [facility] in stable condition, medically. Pt denies both suicidal and homicidal ideation as well as auditory and visual hallucinations. A/Ox2, denies any pain or discomfort at this time. No signs of distress noted. Vitals taken, stable and recorded. Pt appears to be ambulatory with a steady gait. The choice of vendor form and multidisciplinary exit care form were done, printed, signed, and given to the patient. all belongings accounted to the patient. Discharged instruction relayed to [facility]. Patient left the unit via gurney accompanied by ambulance staff. Discharged.
== END 2023-02-21 13:35 | DRG 885 ==
LOC: ER 21:18 → GPS 23:54
PROVIDERS: ADMIT Psychiatry & Neurology Psychiatry; ATTEND Internal Medicine
DX: F31.2 Bipolar disorder, current episode manic severe with psychotic features (principal); F29 Unspecified psychosis not due to a substance or known physiological condition; Z79.899 Other long term (current) drug therapy; I10 Essential (primary) hypertension; N40.0 Benign prostatic hyperplasia without lower urinary tract symptoms; S01.111A Laceration without foreign body of right eyelid and periocular area, initial encounter; Z59.00 Homelessness unspecified; X58.XXXA Exposure to other specified factors, initial encounter; Y92.9 Unspecified place or not applicable; S81.811A Laceration without foreign body, right lower leg, initial encounter; Z91.81 History of falling; Z73.6 Limitation of activities due to disability; F60.9 Personality disorder, unspecified
CPT/HCPCS: 36415; 70450-TC; 80048-TC; 80061-TC; 80076-TC; 82565-TC; 85025-TC; 97112-TC; 97116-TC; 97530-TC; C9803; G0480; J1200; J1630; J2060

== ENCOUNTER 2023-02-14 17:16 | Emergency (ER) | payer MEDICARE, BC ==
[~2023-02-14] VITALS: Ht 185.4 cm; Wt 85.3 kg
[~2023-02-14 17:16] MED LIST changes: +CEPH500C2 PO; +RISP0.2515 PO
--- NOTE | 2023-02-14 17:25 | NUR ---
PATIENT TAKEN TO CT BY DUSTY VIA MADELINE
[2023-02-14] MEDS ORDERED: LIDOCAINE 1% INJ 50 ML MDV IJ ONE (18:05)
[2023-02-14 19:04] VITALS: BP 128/85
--- NOTE | 2023-02-14 19:05 | NUR ---
Patient discharge after care provided, patient back to facility with caregiver. Patient stable with no signs of distress, all safety precautions taken.
== END 2023-02-14 19:09 ==
LOC: ER 17:19
DX: S01.81XA Laceration without foreign body of other part of head, initial encounter (principal); I10 Essential (primary) hypertension; Z88.8 Allergy status to other drugs, medicaments and biological substances; Z79.899 Other long term (current) drug therapy; W01.0XXA Fall on same level from slipping, tripping and stumbling without subsequent striking against object, initial encounter; Y93.89 Activity, other specified; Y92.89 Other specified places as the place of occurrence of the external cause; Y99.8 Other external cause status
CPT/HCPCS: 99282; 12013; J3490; A6403; 70450-TC